=== PATIENT | male | born 1975 | race Caucasian/White ===

== ENCOUNTER 2018-11-18 11:21 | Emergency (ER) | payer BC ==
[2018-11-18 12:24] LABS: Absolute Lymphocytes (CBC) 1.7 K/uL (0.7-4.9); Absolute Monocytes 0.6 K/uL (0.1-1.3); Absolute Neutrophil 5.8 K/uL (1.8-8.0); Basophils % 0.7 % (0-1.3); Eosinophils % 3.2 % (0-4.4); Hematocrit 43.8 % (39.6-49.0); Lymphocytes % 20.1 % (15.3-44.8); MPV 9.1 fL (7.6-11.3); Monocytes % 7.2 % (3.3-12.3); RBC Red Blood Cell Count 4.95 M/uL (4.33-5.43)
[2018-11-18 13:11] LABS: Potassium 4.4 mmol/L (3.5-5.1)
--- NOTE | 2018-11-18 13:54 | RAD REPORT ---
EXAM DESCRIPTION: US - Scrotum Testicles - 11/18/2018 1:28 pm CLINICAL HISTORY: Testicular pain and swelling COMPARISON: None. FINDINGS: Both testicles are well visualized and show homogeneous echogenicity. Doppler evaluation s hows normal blood flow in the testicular tissue. No enlargement or hyperemia of either epididymis. In the wall of the scrotum superior to the left testicle there is a complex heterogeneous, hypoechoic collection measuring 2.7 x 2.0 x 1.8 cm. Abscess or similar infectious/inflammatory collection is fe lt to be most likely. This is the correlate for the area of visible abnormality on physical exam. IMPRESSION: Approximately 2.7 centimeter scrotal wall abscess or similar infectious/ inflammatory pr ocess at the site of palpable abnormality, left-side, superior to the testicle. No testicular or epididymis abnormality.
[2018-11-18] MEDS ORDERED: MORPHINE 4 MG/ML SYR ONE (14:10)
[2018-11-18] MEDS ORDERED: LORazepam 2 MG/ML VIAL ONE (14:10)
[2018-11-18] MEDS ORDERED: LIDOCAINE 1% MPF 30 ML VIAL ONE (14:11)
[2018-11-18] MEDS ORDERED: BUPIVACAINE 0.5% PF 10 ML VIAL ONE (14:11)
[2018-11-18] MEDS ORDERED: ONDANSETRON 4 MG/2 ML VIAL ONE (14:11)
[2018-11-18] MEDS ORDERED: CLINDAMYCIN 900MG/D5W 900 MG/50 ML IVPB IV ONE (15:01)
[2018-11-18] MEDS ORDERED: SMZ./TMP. 800/160 MG TABLET ONE (15:01)
--- NOTE | 2018-11-18 15:04 | EDPHYS ---
Physician Documentation [facility] Name: Albert Leach Age: 43 yrs Sex: Male : 1975 Arrival Date: 11/18/2018 Time: 11:23 Bed 20 Private MD: ED Physician Nam Mcintyre HPI: 11/18 11:55 This 43 yrs old Male presents to ER via Ambulatory with complaints of Abscess.cp 11:55 The patient presents with an abscess of the left side scrotum. cp 11:55 Description: swollen. Onset: The symptoms/episode began/occurred yesterday. Associated cp signs and symptoms: Pertinent negatives: discharge, drainage, fever, shortness of breath. Historical: - Allergies: 11:31 No Known Allergies; aa5 - Home Meds: 11:31 Metformin Oral [Active]; lovastatin 20 mg Oral tab [Active]; aa5 losartan-hydrochlorothiazide oral oral [Active]; - PMHx: 11:31 Hypertension; Hyperlipidemia; Diabetes - NIDDM; aa5 - PSHx: 11:31 abscess; aa5 - Immunization history:: Flu vaccine is not up to date. - Social history:: Smoking status: Patient/guardian denies using tobacco. - Ebola Screening: : No symptoms or risks identified at this time. ROS: 12:05 Constitutional: Negative for body aches, chills, fever, poor PO intake. cp 12:05 Eyes: Negative for injury, pain, redness, and discharge. cp 12:05 ENT: Negative for drainage from ear(s), ear pain, sore throat, difficulty swallowing, difficulty handling secretions. 12:05 Cardiovascular: Negative for chest pain, edema, palpitations. 12:05 Respiratory: Negative for cough, shortness of breath, wheezing. 12:05 Abdomen/GI: Negative for abdominal pain, nausea, vomiting, and diarrhea. 12:05 Skin: Positive for abscess, swelling, of the left side of scrotum. 12:05 Neuro: Negative for altered mental status, headache, weakness. 12:05 All other systems are negative. Exam: 12:10 Head/Face: Normocephalic, atraumatic. cp 12:10 Constitutional: The patient appears in no acute distress, alert, awake, non-toxic, well developed, well nourished, obese. 12:10 Eyes: Periorbital structures: appear normal, Conjunctiva: normal, no exudate, no cp injection, Lids and lashes: appear normal, bilaterally. 12:10 ENT: External ear(s): are unremarkable, Nose: is normal, Mouth: Lips: moist, Oral mucosa: moist, Posterior pharynx: Airway: no evidence of obstruction, patent. 12:10 Chest/axilla: Inspection: normal. 12:10 Cardiovascular: Rate: normal, Rhythm: regular. 12:10 Respiratory: the patient does not display signs of respiratory distress, Respirations: normal, no use of accessory muscles, no retractions, no splinting, no tachypnea. 12:10 Abdomen/GI: Inspection: obese Palpation: abdomen is soft and non-tender, in all quadrants, voluntary guarding, is not appreciated, involuntary guarding, is not appreciated. 12:10 Back: pain, is absent, ROM is normal. 12:10 Skin: abscess, that is moderate sized, of the left side scrotum, with induration. Vital Signs: 11:32 BP 164 / 98; Pulse 88; Resp 20 S; Temp 98.9(TE); Pulse Ox 97% on R/A; Weight 181.44 kg aa5 (R); Height 5 ft. 11 in. (180.34 cm) (R); Pain 1/10; 13:27 BP 140 / 75; Pulse 89; Resp 20; Pulse Ox 97% on R/A; mh5 14:23 BP 129 / 80; Pulse 89; Resp 18; Pulse Ox 98% on R/A; mh5 15:34 BP 143 / 84; Pulse 89; Resp 18; Pulse Ox 99% on R/A; em 11:32 Body Mass Index 55.79 (181.44 kg, 180.34 cm) aa5 Procedures: 14:39 I \T\ D: Incision and drainage was performed for an abscess of the left scrotal wall cp Prepped with Betadine, Anesthetized with 5 ccs of 1% lidocaine w/o epi and 0.5% marcaine w/o epi. Incised with #11 blade. Drained moderate amount purulent fluid. bloody fluid. Cultures obtained. Packed with iodoform gauze, Dressing: sterile 4x4 gauze, the patient tolerated the procedure well. MDM: 11:33 Patient medically screened. cp 12:00 Differential diagnosis: abscess, cellulitis, sepsis, Kalpesh's gangrene. cp 13:37 Physician consultation: Munir Martinez MD was called at 13:35, was contacted at 13:38, regarding consult, patient's condition, wants I\T\D performed in ED and f/u in office. 15:02 Data reviewed: vital signs, nurses notes, lab test result(s), radiologic studies, cp ultrasound, I have discussed the patient's presentation/case with the attending Emergency Department Physician; and as a result, I will discharge patient. 15:02 Counseling: I had a detailed discussion with the patient and/or guardian regarding: the cp historical points, exam findings, and any diagnostic results supporting the discharge/admit diagnosis, lab results, radiology results, the need for outpatient follow up, a urologist, to return to the emergency department if symptoms worsen or persist or if there are any questions or concerns that arise at home. Response to treatment: the patient's symptoms have markedly improved after treatment, and as a result, I will discharge patient. 11/18 11:48 Order name: CBC with Diff; Complete Time: 13:02 cp 11/18 11:48 Order name: BMP; Complete Time: 13:15 cp 11/18 13:15 Interpretation: Normal except: GLUC 191; GFR 78. cp 11/18 11:48 Order name: US Scrotum Testicles; Complete Time: 13:56 cp 11/18 12:37 Order name: Glucose, Ancillary Testing; Complete Time: 13:02 EDMS 11/18 13:58 Order name: Wound Culture cp 11/18 11:48 Order name: IV; Complete Time: 12:11 cp 11/18 11:48 Order name: Accucheck Blood Glucose; Complete Time: 12:11 cp 11/18 13:58 Order name: I\T\D Setup; Complete Time: 14:22 cp Administered Medications: 14:18 Drug: Zofran 4 mg Route: IVP; Site: right forearm; ss 15:06 Follow up: Response: No adverse reaction em 14:20 Drug: morphine 4 mg Route: IVP; Site: right forearm; ss 15:06 Follow up: Response: No adverse reaction; Pain is decreased em 14:22 Drug: Ativan 0.5 mg Route: IVP; Site: right forearm; ss 14:45 Follow up: Response: No adverse reaction; Anxiety decreased em 14:28 Drug: Ativan 0.5 mg Route: IVP; Site: right forearm; ss 14:45 Follow up: Response: No adverse reaction; Anxiety decreased em 14:34 Drug: Marcaine (0.5 %) 5 ml {Note: adminisitered by PA. Nam} Volume: 10 ml; Route: em Infiltration; Site: affected area; 14:40 Follow up: Response: No adverse reaction; Pain is decreased em 14:34 Drug: Lidocaine (1 %) 5 mg {Note: administered by PA. Nam} Route: Infiltration; em Site: affected area; 14:40 Follow up: Response: No adverse reaction; Pain is decreased em 14:53 Drug: Clindamycin 900 mg Route: IVPB; Infused Over: 30 mins; Site: right forearm; em 15:30 Follow up: Response: No adverse reaction; IV Status: Completed infusion; IV Intake: 50mlem 14:53 Drug: Bactrim (160 mg-800 mg (DS) 2 tabs Route: PO; em 15:06 Follow up: Response: No adverse reaction em Point of Care Testing: Blood Glucose: 11:55 Blood Glucose: 170 mg/dL; em Ranges: Critical Glucose Levels:Adult <50 mg/dl or >400 mg/dl <40 mg/dl or >180 mg/dl Disposition: 11/19 08:58 Co-signature as Attending Physician, Nam Mcintyre MD I agree with the assessment and chance plan of care. Disposition: 11/18/18 15:03 Discharged to Home. Impression: Abscess of left scrotal wall. - Condition is Stable. - Discharge Instructions: Skin Abscess. - Prescriptions for Clindamycin HCl 300 mg Oral Capsule - take 1 capsule by ORAL route every 6 hours for 10 days; 40 capsule. Ibuprofen 800 mg Oral Tablet - take 1 tablet by ORAL route every 8 hours As needed take with food; 30 tablet. Tylenol- Codeine #3 300-30 mg Oral Tablet - take 2 tablets by ORAL route every 8 hours As needed; 15 tablet. Bactrim DS 800- 160 mg Oral Tablet - take 1 tablet by ORAL route every 12 hours for 10 days; 20 tablet. - Medication Reconciliation Form, Thank You Letter, Antibiotic Education, Prescription Opioid Use form. - Follow up: Munir Martinez MD; When: 1 - 2 days; Reason: Wound Recheck. - Problem is new. - Symptoms have improved. Signatures: Dispatcher [employer] EDNam Butler MD MD cha Munoz, Edgar, DELIVER DRIVER DELIVER DRIVER em Celina Corral, RN RN aa5 Sandee Castañeda RN RN ss Nam Lindsey, PA PA cp Corrections: (The following items were deleted from the chart) 11/18 15:34 15:03 11/18/2018 15:03 Discharged to Home. Impression: Abscess of left scrotal wall. em Condition is Stable. Forms are Medication Reconciliation Form, Thank You Letter, Antibiotic Education, Prescription Opioid Use. Follow up: Munir Martinez; When: 1 - 2 days; Reason: Wound Recheck. Problem is new. Symptoms have improved. cp
--- NOTE | 2018-11-18 15:04 | ER ---
Nurse's Notes [facility] Name: Albert Leach Age: 43 yrs Sex: Male : 1975 Arrival Date: 11/18/2018 Time: 11:23 Bed 20 Private MD: Diagnosis: Abscess of left scrotal wall Presentation: 11/18 11:30 Presenting complaint: Patient states: abscess to groin area since yesterday. Transition aa5 of care: patient was not received from another setting of care. Onset of symptoms was November 2018. Risk Assessment: Do you want to hurt yourself or someone else? Patient reports no desire to harm self or others. Care prior to arrival: None. 11:30 Method Of Arrival: Ambulatory aa5 11:30 Acuity: LITA 3 aa5 12:15 Initial Sepsis Screen: Does the patient meet any 2 criteria? No. Patient's initial em sepsis screen is negative. Does the patient have a suspected source of infection? Yes: Skin breakdown/wound. Historical: - Allergies: 11:31 No Known Allergies; aa5 - Home Meds: 11:31 Metformin Oral [Active]; lovastatin 20 mg Oral tab [Active]; aa5 losartan-hydrochlorothiazide oral oral [Active]; - PMHx: 11:31 Hypertension; Hyperlipidemia; Diabetes - NIDDM; aa5 - PSHx: 11:31 abscess; aa5 - Immunization history:: Flu vaccine is not up to date. - Social history:: Smoking status: Patient/guardian denies using tobacco. - Ebola Screening: : No symptoms or risks identified at this time. Screenin:45 Abuse screen: Denies threats or abuse. Denies injuries from another. Nutritional jl7 screening: No deficits noted. Tuberculosis screening: No symptoms or risk factors identified. Fall Risk None identified. Assessment: 11:45 General: Appears in no apparent distress. uncomfortable, Behavior is cooperative, jl7 appropriate for age, anxious. Pain: Complains of pain in groin Pain does not radiate. Pain currently is 1 out of 10 on a pain scale. Pain began 2-3 days ago. Is continuous. Neuro: Level of Consciousness is awake, alert, obeys commands, Oriented to person, place, time, situation. Cardiovascular: Patient's skin is warm and dry. Respiratory: Airway is patent Respiratory effort is even, unlabored, Respiratory pattern is regular, symmetrical. Derm: Skin is pink, warm \T\ dry. Abscess located on groin. 13:00 Reassessment: Patient appears in no apparent distress at this time. Patient and/or em family updated on plan of care and expected duration. Pain level reassessed. Patient is alert, oriented x 3, equal unlabored respirations, skin warm/dry/pink. pending US. 15:00 Reassessment: pending completion of IV ABX, will be discharged afterwards. em 15:07 Reassessment: Patient appears in no apparent distress at this time. Patient and/or em family updated on plan of care and expected duration. Pain level reassessed. Patient is alert, oriented x 3, equal unlabored respirations, skin warm/dry/pink. Patient states feeling better. Vital Signs: 11:32 BP 164 / 98; Pulse 88; Resp 20 S; Temp 98.9(TE); Pulse Ox 97% on R/A; Weight 181.44 kg aa5 (R); Height 5 ft. 11 in. (180.34 cm) (R); Pain 1/10; 13:27 BP 140 / 75; Pulse 89; Resp 20; Pulse Ox 97% on R/A; mh5 14:23 BP 129 / 80; Pulse 89; Resp 18; Pulse Ox 98% on R/A; mh5 15:34 BP 143 / 84; Pulse 89; Resp 18; Pulse Ox 99% on R/A; em 11:32 Body Mass Index 55.79 (181.44 kg, 180.34 cm) aa5 ED Course: 11:23 Patient arrived in ED. as 11:30 Triage completed. aa5 11:30 Arm band placed on. aa5 11:33 Nam Lindsey PA is PHCP. cp 11:33 Nam Mcintyre MD is Attending Physician. cp 11:45 Patient has correct armband on for positive identification. Placed in gown. Bed in low jl7 position. Call light in reach. Side rails up X 1. Pulse ox on. NIBP on. Warm blanket given. 11:54 Michael Ball LVN is Primary Nurse. em 12:00 Initial lab(s) drawn, by me, sent to lab. Inserted saline lock: 22 gauge in right em forearm, using aseptic technique. Blood collected. 13:00 Ultrasound completed. Patient tolerated well. Note: assisted moving pt. sg3 13:28 US Scrotum Testicles In Process Unspecified. EDMS 13:[address] Martinez with Nam REYNOSO for patient consulation. eb 14:35 Assist provider with I \T\ D: of an abscess on left side scrotal Set up I\T\D tray. em Performed by Nam REYNOSO Culture sent to lab. Wound packed. iodoform gauze, Dressing with 4X4s, tape Patient tolerated well. 15:02 Munir Martinez MD is Referral Physician. cp 15:33 IV discontinued, intact, bleeding controlled, No redness/swelling at site. Pressure em dressing applied. Administered Medications: 14:18 Drug: Zofran 4 mg Route: IVP; Site: right forearm; ss 15:06 Follow up: Response: No adverse reaction em 14:20 Drug: morphine 4 mg Route: IVP; Site: right forearm; ss 15:06 Follow up: Response: No adverse reaction; Pain is decreased em 14:22 Drug: Ativan 0.5 mg Route: IVP; Site: right forearm; ss 14:45 Follow up: Response: No adverse reaction; Anxiety decreased em 14:28 Drug: Ativan 0.5 mg Route: IVP; Site: right forearm; ss 14:45 Follow up: Response: No adverse reaction; Anxiety decreased em 14:34 Drug: Marcaine (0.5 %) 5 ml {Note: adminisitered by PA. Nam} Volume: 10 ml; Route: em Infiltration; Site: affected area; 14:40 Follow up: Response: No adverse reaction; Pain is decreased em 14:34 Drug: Lidocaine (1 %) 5 mg {Note: administered by PA. Nam} Route: Infiltration; em Site: affected area; 14:40 Follow up: Response: No adverse reaction; Pain is decreased em 14:53 Drug: Clindamycin 900 mg Route: IVPB; Infused Over: 30 mins; Site: right forearm; em 15:30 Follow up: Response: No adverse reaction; IV Status: Completed infusion; IV Intake: 50mlem 14:53 Drug: Bactrim (160 mg-800 mg (DS) 2 tabs Route: PO; em 15:06 Follow up: Response: No adverse reaction em Point of Care Testing: Blood Glucose: 11:55 Blood Glucose: 170 mg/dL; em Ranges: Intake: 15:30 IV: 50ml; Total: 50ml. em Outcome: 15:03 Discharge ordered by MD. cp 15:30 Discharged to home ambulatory, with family. em 15:30 Condition: good 15:30 Discharge instructions given to patient, family, Instructed on discharge instructions, follow up and referral plans. no drinking with medication, no driving heavy equipment, medication usage, Demonstrated understanding of instructions, follow-up care, medications, wound care, Prescriptions given X 4. 15:34 Patient left the ED. em Signatures: Dispatcher [employer] EDMS Michael Ball, DIRECTOR APPOINTMENT DIRECTOR APPOINTMENT em Wendie To Audri, RN RN aa5 Sandee Castañeda RN RN Nam Klein PA PA cp Martinez, Maria [facility] Frank Parker RN RN jl7 Nicolette Valero Elizabeth eb
[2018-11-19] MEDS ORDERED: LORazepam 2 MG/ML VIAL ONE (15:02)
[2018-11-19] MEDS ORDERED: ONDANSETRON 4 MG/2 ML VIAL ONE (15:03)
[2018-11-19] MEDS ORDERED: MORPHINE 4 MG/ML SYR ONE (15:03)
== END 2018-11-18 15:34 | disposition home or self-care (01) ==
LOC: ER 11:21
PROC: 0V95XZZ Drainage of Scrotum, External Approach (ICD-10-PCS; principal; 2018-11-18)
DX: L02.214 Cutaneous abscess of groin (principal); I10 Essential (primary) hypertension; E11.9 Type 2 diabetes mellitus without complications; E78.5 Hyperlipidemia, unspecified
CPT/HCPCS: 36415; 76870; 80048; 82962; 85025; 87070; 87205; 96365; 96375; 99284; J2405

== ENCOUNTER 2018-11-19 09:56 | Inpatient (IN) | payer BC ==
[2018-11-19] MEDS ORDERED: CEFTRIAXONE/SWI 1gm 1 GM/10 ML SYR ONE (11:08)
[2018-11-19 11:47] LABS: Potassium 4.2 mmol/L (3.5-5.1)
--- NOTE | 2018-11-19 11:49 | RAD REPORT ---
EXAM DESCRIPTION: CT - Abdomen Pelvis W Contrast - 11/19/2018 11:33 am CLINICAL HISTORY: Abdominal pain left scrotal abscess4. COMPARISON: none. TECHNIQUE: Computed axial tomography of the abdomen pelvis was obtained. 100 cc Isovue-300 was admin istered intravenously. Oral contrast was not requested which limits evaluation of bowel. All CT scans are performed using dose optimization technique as appropriate and may include automated exposure control or mA/KV adjustment according to patient size. FINDINGS: Fatty liver. Mild hepatomegaly The Spleen, pancreas, adrenal and kidneys appear unremarkable. There is no evidence of diverticulitis. The appendix is normal Small umbilical hernia Ill-defined increased density is present within the anterior left perineum and left scrotum. Small am ount of air is present. Fluid-filled abscess is not seen IMPRESSION: Ill-defined increased density is present within the anterior left perineum and left scro luke. Small amount of air is present. Fluid-filled abscess is not seen. This has the appearance of a c ellulitis. The air probably related to recent instrumentation rather than gas forming infection. Maciel tereza, if the patient's symptoms worsen then a followup CT should be obtained .
[2018-11-19 12:32] LABS: Absolute Lymphocytes (CBC) 0.9 K/uL (0.7-4.9); Absolute Monocytes 0.6 K/uL (0.1-1.3); Absolute Neutrophil 6.6 K/uL (1.8-8.0); Basophils % 0.5 % (0-1.3); Eosinophils % 2.5 % (0-4.4); Hematocrit 42.6 % (39.6-49.0); Lymphocytes % 11.1 % (15.3-44.8); MPV 9.6 fL (7.6-11.3); Monocytes % 7.1 % (3.3-12.3); RBC Red Blood Cell Count 4.79 M/uL (4.33-5.43)
[2018-11-19 13:06] LABS: Urine Blood NEGATIVE (NEG); Urine Glucose 1+ (NEG); Urine Protein NEGATIVE (NEG); Urine pH 5.5 (5.0-7.0)
[2018-11-19] MEDS ORDERED: VANCOMYCIN/NS 1 gm 1 GM/250 ML BAG IV ONE (13:30)
[2018-11-19] MEDS ORDERED: NA CHLORIDE 0.9% 1,000 ML ONE (13:31)
--- NOTE | 2018-11-19 15:10 | ER ---
Nurse's Notes [facility] Name: Albert Leach Age: 43 yrs Sex: Male : 1975 Arrival Date: 11/19/2018 Time: 09:56 Bed 20 Private MD: Diagnosis: Cutaneous abscess of perineum;Cellulitis of perineum Presentation: 11/19 10:05 Presenting complaint: states: had abscess drained yesterday. Is back today because ss area of redness and swelling is worse and patient is experiencing more pain. reports that they spoke with Dr. Martinez this morning and is requesting a "work up and consultation.". Transition of care: patient was not received from another setting of care. Onset of symptoms was November 15, 2018. Risk Assessment: Do you want to hurt yourself or someone else? Patient reports no desire to harm self or others. Initial Sepsis Screen:. Care prior to arrival: None. 10:05 Method Of Arrival: Ambulatory ss 10:05 Acuity: LITA 3 ss 10:35 Initial Sepsis Screen: Does the patient meet any 2 criteria? RR > 20 per min. HR > 90 sg bpm. Yes Does the patient have a suspected source of infection? Yes: Skin breakdown/wound. Historical: - Allergies: 10:08 No Known Allergies; ss - PMHx: 10:08 Diabetes - NIDDM; Hyperlipidemia; Hypertension; ss - PSHx: 10:08 abscess; ss - Immunization history:: Adult Immunizations unknown. - Social history:: Smoking status: Patient/guardian denies using tobacco. - Ebola Screening: : Patient negative for fever greater than or equal to 101.5 degrees Fahrenheit, and additional compatible Ebola Virus Disease symptoms Patient denies exposure to infectious person Patient denies travel to an Ebola-affected area in the 21 days before illness onset. Screenin:10 Abuse screen: Denies threats or abuse. Denies injuries from another. Nutritional sg screening: No deficits noted. Tuberculosis screening: No symptoms or risk factors identified. Never had TB. Fall Risk None identified. Assessment: 11:10 General: Appears in no apparent distress. uncomfortable, well groomed, well developed, sg well nourished, Behavior is calm, cooperative, appropriate for age. Pain: Complains of pain in groin. Cardiovascular: Capillary refill is brisk in bilateral fingers Patient's skin is warm and dry. Respiratory: Airway is patent Respiratory effort is even, unlabored, Respiratory pattern is regular, symmetrical. GI: Abdomen is round non-distended, obese. : Genitalia appear normal. Derm: Skin is pink, warm \\T\\ dry. Abscess located on groin is hot to touch, is red, packing in place from yesterdays visit. 14:58 Reassessment: Patient appears in no apparent distress at this time. Patient and/or ph family updated on plan of care and expected duration. Pain level reassessed. Patient is alert, oriented x 3, equal unlabored respirations, skin warm/dry/pink. Dr Martinez at bedside to assess and repack wound, verbal order received for IV medications, see MAR. 16:33 Reassessment: notified of pt results from repeat lactate, orders received for sg NS 1 liter, input orders for NS Sepsis orders, pt to be given more IV fluids, pt updated attempt to call report and receiving nurse Liz not ready at this time, pt updated and stated understanding. Vital Signs: 10:08 BP 153 / 88; Pulse 106; Resp 19; Temp 97.5(TE); Pulse Ox 97% on R/A; Weight 181.44 kg; ss Height 5 ft. 11 in. (180.34 cm); Pain 2/10; 16:25 BP 167 / 80; Pulse 115; Resp 17; Temp 99.0; Pulse Ox 98% on R/A; sg 16:35 BP 136 / 77; Pulse 115; Resp 19; Pulse Ox 99% on R/A; dh3 10:08 Body Mass Index 55.79 (181.44 kg, 180.34 cm) ED Course: 09:56 Patient arrived in ED. as 10:07 Triage completed. ss 10:08 Arm band placed on right wrist. ss 10:17 Pierre Garcia, CLARY is Primary Nurse. sg 10:20 Mehul Hinds MD is Attending Physician. gs 10:35 No provider procedures requiring assistance completed. sg 11:00 Patient has correct armband on for positive identification. Bed in low position. Call sg light in reach. kindergarten teacher assistant on. Pulse ox on. NIBP on. Warm blanket given. Head of bed elevated. 11:15 Missed attempt(s): 20 gauge in left antecubital area. Bleeding controlled, band aid dh3 applied, catheter tip intact. 11:17 Initial lab(s) drawn, by me, sent to lab. First set of blood cultures drawn by me. dh3 Inserted saline lock: 22 gauge in left forearm, using aseptic technique. Blood collected. 11:31 CT completed. Patient tolerated procedure well. Patient moved to CT via stretcher. jg6 Patient moved back from CT. 11:33 CT Abd/Pelvis - W/Contrast In Process Unspecified. EDMS 15:09 Tanvi Haddad MD is Hospitalizing Provider. gs 17:00 IV discontinued, intact, No redness/swelling at site. sg Administered Medications: 12:40 Drug: Rocephin - (cefTRIAXone) 1 grams Route: IVPB; Infused Over: 30 mins; Site: left sg forearm; 13:00 Follow up: Response: No adverse reaction; IV Status: Completed infusion sg 13:20 Drug: vancoMYCIN 1 grams Route: IVPB; Infused Over: 2 hrs; Site: left forearm; sg 15:30 Follow up: Response: No adverse reaction; IV Status: Completed infusion sg 13:40 Drug: NS 0.9% 1000 ml Route: IV; Rate: 1 bolus; Site: left forearm; sg 15:00 Follow up: Response: No adverse reaction; IV Status: Completed infusion; IV Intake: sg 990ml 15:50 Follow up: Response: No adverse reaction; IV Intake: 1000ml sg 14:53 Drug: Zofran 4 mg Route: IVP; Site: left forearm; ph 14:55 Drug: morphine 4 mg Route: IVP; Site: left forearm; ph 14:56 Drug: Ativan 1 mg Route: IVP; Site: left forearm; ph 16:42 Drug: NS 0.9% 2000 ml Route: IV; Rate: 1 bolus; Site: left forearm; sg 17:15 Follow up: Response: No adverse reaction; IV Status: Infusion continued upon admission sg Intake: 15:00 IV: 990ml; Total: 990ml. sg 15:50 IV: 1000ml; Total: 1990ml. sg Outcome: 15:10 Decision to Hospitalize by Provider. gs 17:14 Admitted to Med/surg accompanied by tech, family with patient, room 427, with chart, sg Report called to Liz MEANS 17:14 Condition: stable 17:14 Instructed on the need for admit, safety practices, Demonstrated understanding of instructions, follow-up care. 17:33 Patient left the ED. sg Signatures: Dispatcher [employer] EDPierre Mead RN RN sg Martinez, Amelia as Smirch, Shelby, RN RN Erika Meyer RN RN Roldan, Ashleigh [facility] Mehul Hinds MD MD gs Garcia, Jessica j6 Corrections: (The following items were deleted from the chart) 16:35 16:25 BP 136 / 80; Pulse 87bpm; Resp 17bpm; Pulse Ox 98% RA; Temp 99.0F; sg sg
--- NOTE | 2018-11-19 15:10 | EDPHYS ---
Physician Documentation [facility] Name: Albert Leach Age: 43 yrs Sex: Male : 1975 Arrival Date: 11/19/2018 Time: 09:56 Bed 20 Private MD: ED Physician Mehul Hinds HPI: 11/19 15:06 This 43 yrs old Male presents to ER via Ambulatory with complaints of Abscess gs Recheck. 15:06 Patient presents to ED for recheck of: abscess. The affected area is on the groin. gs Previous treatment: The patient was initially treated yesterday, the care was rendered at [facility]. Progress: The patient reports increased redness. The patient has experienced a previous episode. Historical: - Allergies: 10:08 No Known Allergies; ss - PMHx: 10:08 Diabetes - NIDDM; Hyperlipidemia; Hypertension; ss - PSHx: 10:08 abscess; ss - Immunization history:: Adult Immunizations unknown. - Social history:: Smoking status: Patient/guardian denies using tobacco. - Ebola Screening: : Patient negative for fever greater than or equal to 101.5 degrees Fahrenheit, and additional compatible Ebola Virus Disease symptoms Patient denies exposure to infectious person Patient denies travel to an Ebola-affected area in the 21 days before illness onset. ROS: 15:06 All other systems are negative. gs Exam: 15:06 Head/Face: Normocephalic, atraumatic. Eyes: Pupils equal round and reactive to light, gs extra-ocular motions intact. Lids and lashes normal. Conjunctiva and sclera are non-icteric and not injected. Cornea within normal limits. Periorbital areas with no swelling, redness, or edema. ENT: Nares patent. No nasal discharge, no septal abnormalities noted. Tympanic membranes are normal and external auditory canals are clear. Oropharynx with no redness, swelling, or masses, exudates, or evidence of obstruction, uvula midline. Mucous membranes moist. Neck: Trachea midline, no thyromegaly or masses palpated, and no cervical lymphadenopathy. Supple, full range of motion without nuchal rigidity, or vertebral point tenderness. No Meningismus. Chest/axilla: Normal chest wall appearance and motion. Nontender with no deformity. No lesions are appreciated. Cardiovascular: Regular rate and rhythm with a normal S1 and S2. No gallops, murmurs, or rubs. Normal PMI, no JVD. No pulse deficits. Respiratory: Lungs have equal breath sounds bilaterally, clear to auscultation and percussion. No rales, rhonchi or wheezes noted. No increased work of breathing, no retractions or nasal flaring. Abdomen/GI: Soft, non-tender, with normal bowel sounds. No distension or tympany. No guarding or rebound. No evidence of tenderness throughout. Back: No spinal tenderness. No costovertebral tenderness. Full range of motion. Skin: Warm, dry with normal turgor. Normal color with no rashes, no lesions, and no evidence of cellulitis. MS/ Extremity: Pulses equal, no cyanosis. Neurovascular intact. Full, normal range of motion. Neuro: Awake and alert, GCS 15, oriented to person, place, time, and situation. Cranial nerves II-XII grossly intact. Motor strength 5/5 in all extremities. Sensory grossly intact. Cerebellar exam normal. Normal gait. 15:06 Constitutional: The patient appears alert, awake. 15:06 : Male external genitalia: induration left hemiscrotum cellulitis scrotum to pubis on left no perineal crepitus or cellulitis. Vital Signs: 10:08 BP 153 / 88; Pulse 106; Resp 19; Temp 97.5(TE); Pulse Ox 97% on R/A; Weight 181.44 kg; ss Height 5 ft. 11 in. (180.34 cm); Pain 2/10; 16:25 BP 167 / 80; Pulse 115; Resp 17; Temp 99.0; Pulse Ox 98% on R/A; sg 16:35 BP 136 / 77; Pulse 115; Resp 19; Pulse Ox 99% on R/A; dh3 10:08 Body Mass Index 55.79 (181.44 kg, 180.34 cm) ss MDM: 10:43 Patient medically screened. 15:06 Differential diagnosis: cellulitis, abscess,fourniers, sepsis. Data reviewed: vital gs signs, nurses notes, lab test result(s), radiologic studies. Response to treatment: the patient's symptoms have mildly improved after treatment, and as a result, I will admit patient. Physician consultation: Munir Martinez MD and will see patient in ED, would like admission per Dr. Tanvi Haddad MD. 15:10 ED course: lactate most likely from metformin. 11/19 10:51 Order name: Basic Metabolic Panel; Complete Time: 12:01 11/19 10:51 Order name: Blood Culture Adult (2) 11/19 10:51 Order name: CBC with Diff; Complete Time: 13:09 11/19 10:51 Order name: Lactate; Complete Time: 12:01 11/19 10:51 Order name: Procalcitonin; Complete Time: 13:09 11/19 12:44 Order name: Urine Dipstick--Ancillary (enter results); Complete Time: 13:09 dh3 11/19 10:51 Order name: CT Abd/Pelvis - W/Contrast; Complete Time: 12:01 11/19 16:22 Order name: Lactate Sepsis 2 HR Follow-up; Complete Time: 16:30 EDMS 11/19 10:51 Order name: Cardiac monitoring; Complete Time: 11:00 11/19 10:51 Order name: IV Saline Lock - Large Bore; Complete Time: 11:01 11/19 10:51 Order name: Labs collected and sent; Complete Time: 11:01 Administered Medications: 12:40 Drug: Rocephin - (cefTRIAXone) 1 grams Route: IVPB; Infused Over: 30 mins; Site: left sg forearm; 13:00 Follow up: Response: No adverse reaction; IV Status: Completed infusion sg 13:20 Drug: vancoMYCIN 1 grams Route: IVPB; Infused Over: 2 hrs; Site: left forearm; sg 15:30 Follow up: Response: No adverse reaction; IV Status: Completed infusion sg 13:40 Drug: NS 0.9% 1000 ml Route: IV; Rate: 1 bolus; Site: left forearm; sg 15:00 Follow up: Response: No adverse reaction; IV Status: Completed infusion; IV Intake: sg 990ml 15:50 Follow up: Response: No adverse reaction; IV Intake: 1000ml sg 14:53 Drug: Zofran 4 mg Route: IVP; Site: left forearm; ph 14:55 Drug: morphine 4 mg Route: IVP; Site: left forearm; ph 14:56 Drug: Ativan 1 mg Route: IVP; Site: left forearm; ph 16:42 Drug: NS 0.9% 2000 ml Route: IV; Rate: 1 bolus; Site: left forearm; 17:15 Follow up: Response: No adverse reaction; IV Status: Infusion continued upon admission sg Disposition: 11/19/18 15:10 Hospitalization ordered by Tanvi Haddad for Observation. Preliminary diagnosis are Cutaneous abscess of perineum, Cellulitis of perineum. - Bed requested for Telemetry/MedSurg (observation). - Status is Observation. sg - Condition is Stable. - Problem is new. - Symptoms have improved. UTI on Admission? No Signatures: Dispatcher [employer] EDMS Linda Ryan RN RN dw Pierre Garcia RN RN sg Franny Mary RN CLARY Sandee Castañeda RN RN Erika Meyer RN RN HindsMehul yao MD MD gs Corrections: (The following items were deleted from the chart) 16:17 15:10 Hospitalization Ordered by Tanvi Haddad MD for Observation. Preliminary diagnosis dw is Cutaneous abscess of perineum; Cellulitis of perineum. Bed requested for Telemetry/MedSurg (observation). Status is Observation. Condition is Stable. Problem is new. Symptoms have improved. UTI on Admission? No. gs 17:33 16:17 11/19/2018 15:10 Hospitalization Ordered by Tanvi Haddad MD for Observation. sg Preliminary diagnosis is Cutaneous abscess of perineum; Cellulitis of perineum. Bed requested for Telemetry/MedSurg (observation). Status is Observation. Condition is Stable. Problem is new. Symptoms have improved. UTI on Admission? No. dw
--- NOTE | 2018-11-19 15:17 | P.HP ---
Certification for Inpatient Patient admitted to: Observation With expected LOS: <2 Midnights Practitioner: I am a practitioner with admitting privileges, knowledge of patient current condition, hospital course, and medical plan of care. Services: Services provided to patient in accordance with Admission requirements found in Title 42 Section 412.3 of the Code of Federal Regulations Patient History Date of Service: 11/19/18 Reason for admission: Scrotal cellulitis History of Present Illness: This is a 43-year-old male with history of diabetes, hypertension hyperlipidemia admitted for scrotal cellulitis. Patient stated that on Monday when he was taking a shower, scrotal area felt hard. This progressively worsened and patient came to the ER on for worsening pain. That day in the ER, and I and D was done and he was discharged with outpatient follow up with Dr. Martinez, urology. Per patient, he came back today because he was having worsening pain and redness. He was seen by Dr. Martinez in the ER and was told to admit for worsening cellulitis. Patient states that he had a temperature of 100.3 yesterday along with intermittent chills. He otherwise denies any chest pain, shortness of breath, headache, vision changes, GI complaints. In the ER, his blood pressure was 153/88, heart rate of 106, respirations of 19 , he was afebrile and satting 97% on room air. His BMI is remarkable for 55.79. His lab work was significant for lactic acid elevated at 2.3. He does not have any white count, his pro calcitonin is normal and his other labs are normal. He had a scrotal ultrasound done on the , with 2.7 cm scrotal wall abscess without any epididymitis. He had normal blood flow in the scrotal area. His CT scan in the ER today with evidence of cellulitis. He received IV Rocephin and vancomycin along with 2 L bolus of IV fluids. Blood cultures were drawn prior to antibiotics. At the time of my exam, patient was alert oriented x3, in mild distress secondary to pain and hemodynamically stable. Allergies No Known Allergies Allergy (Unverified 11/19/18 13:23) Home medications list reviewed: Yes - Past Medical/Surgical History Diabetic: Yes -: Hypertension -: Hyperlipidemia -: Non-insulin dependent diabetes mellitus type 2 Review of Systems 10-point ROS is otherwise unremarkable Physical Examination - Physical Exam General: Alert, Oriented x3, Mild distress (Secondary to pain) HEENT: Atraumatic, PERRLA, Mucous membr. moist/pink, EOMI, Sclerae nonicteric Neck: Supple, 2+ carotid pulse no bruit, No LAD, Without JVD or thyroid abnormality Respiratory: Clear to auscultation bilaterally, Normal air movement Cardiovascular: Regular rate/rhythm, Normal S1 S2 Gastrointestinal: Normal bowel sounds, No tenderness Musculoskeletal: No tenderness Integumentary: No rashes Neurological: Normal gait, Normal speech, Normal strength at 5/5 x4 extr, Normal tone, Normal affect Lymphatics: No axilla or inguinal lymphadenopathy - Studies Laboratory Data (last 24 hrs) 11/19/18 11:17: WBC 8.3, Hgb 13.7, Hct 42.6, Plt Count 233 11/19/18 11:17: Sodium 140, Potassium 4.2, BUN 14, Creatinine 1.08, Glucose 255 H Male Exam - Male Exam Scrotum: Edema, Tenderness, Other (Erythema around scrotal sac. A deeper abscess type lesion in the left inguinal area with packing in place) Assessment and Plan - Problems (Diagnosis) (1) Cellulitis of scrotum Current Visit: Yes Status: Acute (2) Diabetes mellitus Current Visit: Yes Status: Chronic Qualifiers: Diabetes mellitus type: type 2 Diabetes mellitus mcc insulin use: without mcc use Diabetes mellitus complication status: with hyperglycemia Qualified Code(s): E11.65 - Type 2 diabetes mellitus with hyperglycemia (3) Hypertension Current Visit: No Status: Chronic Qualifiers: Hypertension type: essential hypertension Qualified Code(s): I10 - Essential (primary) hypertension (4) Hyperlipidemia Current Visit: No Status: Chronic Qualifiers: Hyperlipidemia type: unspecified Qualified Code(s): E78.5 - Hyperlipidemia , unspecified (5) Morbid obesity with BMI of 50.0-59.9, adult Current Visit: Yes Status: Chronic - Plan This is a 43-year-old male with: Scrotal cellulitis, He is status post I and D in the ER yesterday. Admit to floor with tele IV antibiotics with vancomycin and Rocephin Pain control with IV pain medication Demarcated area of cellulitis, to monitor Dr. Martinez, urology consulted. Zna-fwcbqsr-zojxmkcsr diabetes mellitus, type 2, with hyperglycemia Strict blood sugar control Accu-Cheks. Will start with mild sliding scale insulin. Will adjust as needed. Hypertension Restart home medication of losartan/hydrochlorothiazide Continue to monitor and adjust medications as needed Hyperlipidemia Stable. We will restart home statin Morbid obesity DVT prophylaxis: Lovenox GI prophylaxis: None Diet: 1800 diabetic Disposition: Admit to floor with tele. Continue IV antibiotics. Pending symptomatic improvement Discharge Plan: Home Plan to discharge in: 48 Hours - Advance Directives Does patient have a Living Will: No Does patient have a Durable POA for Healthcare: No Time Spent Managing Pts Care (In Minutes): 55
[2018-11-19] MEDS ORDERED: NA CHLORIDE 0.9% 2,000 ML ONE (16:49)
[2018-11-19] MEDS ORDERED: ONDANSETRON 4 MG/2 ML VIAL IV PRN (18:15)
[2018-11-19] MEDS: INSULIN -REGULAR HUMAN 50 UNIT/0.5 ML ML SQ SCH ×2 (18:15→21:52)
[2018-11-19] MEDS ORDERED: ACETAMINOPHEN 500 MG TAB PO PRN (18:53)
[2018-11-19] MEDS: NA CHLORIDE 0.9% 1,000 ML IV SCH ×2 (19:00→23:16)
[2018-11-19] MEDS ORDERED: VANCOMYCIN 1.25 GM in NA CHLORIDE 0.9% 250 ML IVPB SCH (19:00)
[2018-11-19] MEDS ORDERED: FUROSEMIDE 20 MG/ 2ML VIAL IV ONE (19:20)
--- NOTE | 2018-11-19 19:44 | RAD REPORT ---
EXAM DESCRIPTION: Yen Single View11/19/2018 7:38 pm CLINICAL HISTORY: Chest pain COMPARISON: none FINDINGS: The lungs appear clear of acute infiltrate. The heart is mildly enlarged IMPRESSION: No acute abnormalities displayed
[2018-11-19] MEDS: CEFTRIAXONE/SWI 1gm 1 GM/10 ML SYR IV SCH (20:29)
[2018-11-19] MEDS ORDERED: CEFTRIAXONE 1 GM/NS 50 ML 1 GM/50 ML BAG IV SCH (21:00)
--- NOTE | 2018-11-19 21:27 | CON ---
History Of Present Illness: He is a 43-year-old white male diabetic patient, who presented to the ER yesterday with a scrotal abscess on the left side of the scrotum deep underneath, that was drained and packed and sent home on antibiotics. He comes in today stating he has worsening pain. The redness is spreading, so we are going to admit him for IV antibiotics. I examined the patient. There is no more fluctuance. No more pus seen. I changed the dressing, removed the old iodoform gauze and placed a new iodoform gauze. We will admit him for a couple days of IV antibiotics and see how he does, while we are awaiting the cultures to come back from yesterday's culture. Past Medical History: Hypertension, hyperlipidemia, insulin-dependent diabetes mellitus. He had an abscess there before 20 years ago, was drained by Dr. Diehl , in the area of the leg that was MRSA Allergies: NO KNOWN DRUG ALLERGIES. Medications: Metformin, lovastatin, losartan, hydrochlorothiazide. Immunizations: Up to date, flu vaccine up to date. Physical Examination: Vital Signs: Temperature 98.9, pulse rate 89, respirations 18, BP 143/84, saturation 99%. He has some new vitals about to be taken. HEENT: Atraumatic, normocephalic. Chest: Clear. Abdomen: Soft. : Benign scrotum, red erythema up to the pubic area. Lower suprapubic area was marked with a pen. Left hemiscrotum was reddened and slightly matted in 1 area. There was an incision in the left lower posterior area of the scrotum with packing of iodoform gauze. Legs are normal. Laboratory: Reviewed white count 8.3, H and H 13 and 43, platelet count 233. Chemistry: Sodium 140, potassium 4.2, chloride 104, bicarb 25, BUN 14, creatinine 1.1, GFR 74, glucose 255. Lactic acid 2.3, elevated. UA shows pH 5.5 specific gravity 1.020. Blood negative. Nitrite negative. Assessment: Left hemiscrotal abscess with worsened cellulitis status post I and D yesterday by the ER. Plan: Plan is to admit overnight for IV antibiotics. He got a dose of vancomycin in the ER. We will continue that throughout. Continue wet-to-dry dressing changes. I just changed 1 now, we can change next one in the morning, on the rounds. MOISÉS/GRABIEL Voice ID: [id number] Report ID: [id number] MTDD
[2018-11-19] MEDS: VANCOMYCIN 2 GM in NA CHLORIDE 0.9% 500 ML IVPB SCH (23:15)
[2018-11-19] MEDS: MORPHINE 4 MG/ML SYR IV PRN (23:15)
[2018-11-20 04:43] LABS: ALT/SGPT 31 U/L (12-78); AST/SGOT 17 U/L (15-37); Absolute Lymphocytes (CBC) 1.3 K/uL (0.7-4.9); Absolute Neutrophil 5.2 K/uL (1.8-8.0); Albumin 2.8 g/dL (3.4-5.0); Alkaline Phosphatase 72 U/L (45-117); BUN Blood Urea Nitrogen 11 mg/dL (7-18); Basophils % 0.5 % (0-1.3); Bicarbonate 26 mmol/L (21-32); Bilirubin Total 0.6 mg/dL (0.2-1.0); Eosinophils % 2.3 % (0-4.4); Glucose Level 177 mg/dL (74-106); Hematocrit 38.1 % (39.6-49.0); Lymphocytes % 16.9 % (15.3-44.8); MPV 9.2 fL (7.6-11.3); Monocytes % 12.5 % (3.3-12.3); Potassium 3.8 mmol/L (3.5-5.1); Protein, Total 6.3 g/dL (6.4-8.2); RBC Red Blood Cell Count 4.39 M/uL (4.33-5.43); Sodium Level 138 mmol/L (136-145)
[2018-11-20] MEDS: NA CHLORIDE 0.9% 1,000 ML IV SCH ×2 (05:00→13:18)
[2018-11-20 05:52] LABS: Magnesium 2.1 mg/dL (1.8-2.4); Phosphorus 2.3 mg/dL (2.5-4.9)
[2018-11-20] MEDS ORDERED: KCL 20 MEQ/100 mL IVPB 20 MEQ/100 ML BAG IV SCH (06:00)
[2018-11-20] MEDS: INSULIN -REGULAR HUMAN 50 UNIT/0.5 ML ML SQ SCH ×4 (07:30→22:35)
[2018-11-20] MEDS: ENOXAPARIN 40 MG/0.4 ML SQ SCH (08:49)
[2018-11-20] MEDS: VANCOMYCIN 2 GM in NA CHLORIDE 0.9% 500 ML IVPB SCH ×2 (08:50→22:34)
[2018-11-20] MEDS: CEFTRIAXONE/SWI 1gm 1 GM/10 ML SYR IV SCH ×2 (08:50→22:34)
[2018-11-20] MEDS ORDERED: POTASS/SODIUM PHOSPHATE 1 PKT POWD.PACK PO ONE (09:00)
[2018-11-20] MEDS: MORPHINE 4 MG/ML SYR IV PRN ×2 (09:42→15:59)
[2018-11-20] MEDS ORDERED: LIDOCAINE 2% MPF 5 ML VIAL ONE (13:38)
[2018-11-20] MEDS ORDERED: PROPOFOL 200 MG/20 ML VIAL IV ONE ×2 (13:38→13:54)
[2018-11-20] MEDS ORDERED: FENTANYL CITR 100 MCG/2 ML ONE (13:38)
[2018-11-20] MEDS ORDERED: MIDAZOLAM HCL 2 MG/2 ML INJ ONE (13:38)
[2018-11-20] MEDS ORDERED: BUPIVACAINE 0.25% PF 10 ML VIAL ONE (13:40)
[2018-11-20] MEDS ORDERED: LIDOCAINE 1% MPF 30 ML VIAL ONE (13:40)
[2018-11-20] MEDS ORDERED: ROCURONIUM 50 MG/5 ML VIAL IV ONE (13:54)
[2018-11-20] MEDS ORDERED: SUCCINYLCHOLINE 20 MG/ML (10 ML) IV ONE (13:57)
[2018-11-20] MEDS ORDERED: NS 0.9% VIAL 10 ML ONE (14:37)
[2018-11-20] MEDS ORDERED: BACITRACIN 50000 UNIT VIAL ONE (14:37)
[2018-11-20] MEDS ORDERED: NA CHLORIDE 0.9% 1,000 ML ONE (15:12)
[2018-11-20] MEDS: LOSARTAN/HCTZ 50-12.5 PO SCH (16:04)
[2018-11-20] MEDS ORDERED: GLUCAGON 1 MG/VIAL IM PRN (16:11)
[2018-11-20] MEDS ORDERED: D50W 25 GM/50 ML SYRINGE IV PRN (16:11)
--- NOTE | 2018-11-20 17:46 | PN ---
Date of Progress Note: 11/20/2018 Subjective: The patient is seen and examined, chart reviewed, and case discussed with RN. The patie nt states that his scrotal swelling has improved, however, still has significant amount of pain. Medications: List reviewed. Objective: Vital Signs: Temperature 97.2, heart rate 85, blood pressure 129/61, respirations 22, O2 97% on room air. General: Awake, alert, oriented x3. Ill-appearing, morbidly obese male. BMI 55. CV: S1, S2. Regular rate and rhythm. Pulses present. Respiratory: Moving air well bilaterally. No wheezing. Gastrointestinal: Abdomen is soft, nontender, nondistended. Positive bowel sounds. Extremities: No clubbing, cyanosis, or edema. Neurologic: Nonfocal. Skin: Scrotal erythema and edema, apparently improved from previous. Packing in place. Laboratory Data: Sodium 138, potassium 3.8 chloride 104, CO2 26, BUN 11, creatinine 0.86, glucose 17 7, calcium 7.9, phosphorus 2.3, magnesium 2.1. WBC 7.7, H and H 12.9 and 38.1, platelets 204, neutro phils 67%. Blood cultures pending. Assessment: A 43-year-old male with: 1.Cellulitis of the scrotum, status post incision and drainage in the ER, improving with IV antibiot ics. We will continue vancomycin, Rocephin. Dr. Martinez with urology has been consulted. The patient was n.p.o. for possible procedure today. 2.Diabetes mellitus type 2, non-insulin dependent with hyperglycemia. We will continue sliding scal e insulin and Accu-Cheks. 3.Essential hypertension. We will continue home medications. 4.Mixed hyperlipidemia. Continue statin. 5.Morbid obesity. Body mass index 55.8. 6.Deep vein thrombosis prophylaxis with Lovenox. Plan: Follow up with Dr. Martinez's recommendations. Follow up on cultures, so far negative. DC in th e next 24 hours depending on clinical response. SA/MODL Voice ID: [id number] Report ID: [id number]
[2018-11-20] MEDS: HYDROCODONE/APAP 10/325 TAB PO PRN (18:49)
[2018-11-20] MEDS: ATORVASTATIN 10 MG TAB PO SCH (22:34)
[2018-11-21] MEDS: NA CHLORIDE 0.9% 1,000 ML IV SCH ×2 (03:36→10:06)
[2018-11-21] MEDS: HYDROCODONE/APAP 10/325 TAB PO PRN ×4 (03:50→22:25)
[2018-11-21 04:22] LABS: Absolute Lymphocytes (CBC) 1.5 K/uL (0.7-4.9); Absolute Monocytes 0.7 K/uL (0.1-1.3); Absolute Neutrophil 4.4 K/uL (1.8-8.0); Basophils % 0.4 % (0-1.3); Eosinophils % 4.8 % (0-4.4); Hematocrit 39.2 % (39.6-49.0); MPV 9.3 fL (7.6-11.3); Monocytes % 10.5 % (3.3-12.3); RBC Red Blood Cell Count 4.45 M/uL (4.33-5.43)
[2018-11-21 04:29] LABS: ALT/SGPT 30 U/L (12-78); AST/SGOT 19 U/L (15-37); Albumin 2.7 g/dL (3.4-5.0); Alkaline Phosphatase 67 U/L (45-117); BUN Blood Urea Nitrogen 11 mg/dL (7-18); Bicarbonate 27 mmol/L (21-32); Bilirubin Total 0.4 mg/dL (0.2-1.0); Glucose Level 164 mg/dL (74-106); Phosphorus 2.5 mg/dL (2.5-4.9); Potassium 4.1 mmol/L (3.5-5.1); Protein, Total 6.3 g/dL (6.4-8.2); Sodium Level 140 mmol/L (136-145)
[2018-11-21] MEDS: PANTOPRAZOLE 40MG TABLET PO SCH (06:51)
[2018-11-21] MEDS: INSULIN -REGULAR HUMAN 50 UNIT/0.5 ML ML SQ SCH ×4 (07:30→21:00)
[2018-11-21] MEDS: LOSARTAN/HCTZ 50-12.5 PO SCH (10:05)
[2018-11-21] MEDS: CEFTRIAXONE/SWI 1gm 1 GM/10 ML SYR IV SCH (10:05)
[2018-11-21] MEDS: VANCOMYCIN 2 GM in NA CHLORIDE 0.9% 500 ML IVPB SCH ×2 (10:05→20:36)
[2018-11-21] MEDS: ENOXAPARIN 40 MG/0.4 ML SQ SCH (10:07)
[2018-11-21] MEDS: Meropenem 500 MG in NA CHLORIDE 0.9% 100 ML IV SCH (16:04)
[2018-11-21] MEDS ORDERED: Meropenem 500 MG VIAL IV SCH (17:00)
[2018-11-21] MEDS ORDERED: ZOLPIDEM TARTRATE 5 MG TABLET PO PRN (17:59)
--- NOTE | 2018-11-21 20:30 | PN ---
Subjective: The patient is feeling well. Complained of the cellulitis spreading little bit toward t he left upper thigh after incision and drainage yesterday. Reviewed the cultures with the lab, it co uld be a possible gram-negative anaerobic and possible bacteroides that never grew from the emergency room, never gotten anaerobic set up. This is only thing that is missing, so we are going to do anae robic coverage. I have consulted Infectious Disease to see the patient and start anaerobic coverage. The wound looks good. No pus drainage. [place] are in good shape. No fluctuance in the wound. O therwise, he is doing well. His white count has been stable at 7.0, H and H 12.6 and 39, and platele t count 210. Assessment: Scrotal abscess, status post incision and drainage. Continue antibiotics. We will cont inue with Rocephin, vancomycin and possible add anaerobic coverage. Thank you very much end dictation. MOISÉS/GRABIEL Voice ID: [id number] Report ID: [id number]
[2018-11-21] MEDS: MORPHINE 4 MG/ML SYR IV PRN (20:35)
[2018-11-21] MEDS: ATORVASTATIN 10 MG TAB PO SCH (20:36)
--- NOTE | 2018-11-21 20:39 | CON ---
History Of Present Illness: This is a 43-year-old male. I was consulted for a scrotal abscess. The patient was seen by Urology team who has I and D'd the scrotal abscess and has a [place] drain in th e area. The patient concern about redness going down his legs. He has significant history of diabet es mellitus, hypertension, and hyperlipidemia, came in with scrotal cellulitis noted few days prior t o admission. The patient went to the emergency room initially and was seen there. Came in this time with a fever of 100.3 F. Past Medical History: Hypertension, hyperlipidemia, diabetes mellitus. Social History: Nonsmoker, nondrinker. Family History: Noncontributory. Medications: Currently on Rocephin and vancomycin. Allergies: NO KNOWN DRUG ALLERGIES. Review of Systems: A 10-point review was performed. Physical Examination: General: This is a 43-year-old male, lying in bed, not in any acute cardiopulmonary distress. Vital Signs: Temperature 97, pulse 88, respiration 18, blood pressure 123/55. Examination of the abdominal and perineal area shows erythematous changes. Surgical wound noted to t he left side of the scrotal region. No excessive drainage noted. [place] drainage in place. Laboratory Data: Shows WBC 7000, hemoglobin 12.6, platelets are 210. Chemistry shows sodium 140, po tassium 4.1, chloride 106, bicarb 27, BUN 11, creatinine 0.79, glucose 164. Micro data cultures are pending. Assessment And Plan: Left scrotal abscess, which has been drained. The patient has cellulitis in th e perineal region. We will recommend to start the patient on vancomycin and meropenem. Discontinue Rocephin. Continue wound care as recommended by surgical team. We will follow the patient closely. Thank you Dr. Mi for consult. CASTILLO/GRABIEL Voice ID: [id number] Report ID: [id number]
--- NOTE | 2018-11-21 22:00 | PN ---
Date of Progress Note: 11/21/2018 History: The patient is seen and examined, chart reviewed and case discussed with RN and Dr. Martinez, as well as Dr. Pang. Medications: List reviewed. Physical Examination: Vital Signs: Temperature 97.4, heart rate 88, blood pressure 123/55, respirations 20, O2 96% on room air. General: Awake, alert, oriented x3. Ill-appearing male, morbidly obese. CV: S1, S2. Regular rate and rhythm. Peripheral pulses present. Respiratory: Moving air well bilaterally. No wheezing. Gastrointestinal: Abdomen is soft, nontender, nondistended. Positive bowel sounds. Extremities: No clubbing, cyanosis, or edema. Neurologic: Nonfocal. Skin: Scrotal erythema, now starting to the thigh, some warmth to touch. Laboratory Data: Sodium 140, potassium 4.1, chloride 106, CO2 27, BUN 11, creatinine 0.79, glucose 1 64, calcium 8, phosphorus 2.5. WBC 7, H and H 12.6 and 39.2, platelets 210. Blood cultures, no grow th to date. Wound cultures preliminarily showing no growth. Assessment: A 43-year-old male with: 1.Cellulitis of the scrotum status post incision and drainage. Appreciate Dr. Martinez's input. We wi ll continue IV antibiotics. Dr. Pang has adjusted antibiotics for anaerobic coverage. We will con tinue to monitor. Erythema is spreading to the lower extremity. 2.Diabetes mellitus type 2, non-insulin requiring with hyperglycemia. We will continue sliding scal e insulin. Monitor blood glucose levels. 3.Essential hypertension, stable on home medications. 4.Mixed hyperlipidemia. Continue statin. 5.Morbid obesity, BMI of 55.8. 6.Deep venous thrombosis prophylaxis with Lovenox. Plan: Continue IV antibiotics. Follow up on cultures. Likely discharge in the next 24 to 48 hours depending on the clinical response. SA/MODL Voice ID: [id number] Report ID: [id number]
[2018-11-22] MEDS: Meropenem 500 MG in NA CHLORIDE 0.9% 100 ML IV SCH ×3 (01:49→17:01)
[2018-11-22] MEDS: MORPHINE 4 MG/ML SYR IV PRN ×3 (04:20→20:41)
[2018-11-22 05:30] LABS: Absolute Lymphocytes (CBC) 1.5 K/uL (0.7-4.9); Absolute Monocytes 0.7 K/uL (0.1-1.3); Absolute Neutrophil 4.7 K/uL (1.8-8.0); Basophils % 0.8 % (0-1.3); Eosinophils % 6.1 % (0-4.4); Hematocrit 38.8 % (39.6-49.0); MPV 8.6 fL (7.6-11.3); Monocytes % 9.5 % (3.3-12.3); RBC Red Blood Cell Count 4.38 M/uL (4.33-5.43)
[2018-11-22 05:53] LABS: ALT/SGPT 31 U/L (12-78); AST/SGOT 24 U/L (15-37); Albumin 2.8 g/dL (3.4-5.0); Alkaline Phosphatase 71 U/L (45-117); BUN Blood Urea Nitrogen 9 mg/dL (7-18); Bicarbonate 27 mmol/L (21-32); Bilirubin Total 0.5 mg/dL (0.2-1.0); Glucose Level 186 mg/dL (74-106); Protein, Total 6.4 g/dL (6.4-8.2); Sodium Level 138 mmol/L (136-145)
[2018-11-22] MEDS: PANTOPRAZOLE 40MG TABLET PO SCH (06:29)
[2018-11-22] MEDS: HYDROCODONE/APAP 10/325 TAB PO PRN ×2 (07:22→17:02)
[2018-11-22] MEDS: INSULIN -REGULAR HUMAN 50 UNIT/0.5 ML ML SQ SCH ×4 (07:30→20:39)
[2018-11-22] MEDS: LOSARTAN/HCTZ 50-12.5 PO SCH (09:59)
[2018-11-22] MEDS: NA CHLORIDE 0.9% 1,000 ML IV SCH (10:00)
[2018-11-22] MEDS: ENOXAPARIN 40 MG/0.4 ML SQ SCH (10:02)
[2018-11-22] MEDS: VANCOMYCIN 2 GM in NA CHLORIDE 0.9% 500 ML IVPB SCH ×2 (10:21→20:36)
--- NOTE | 2018-11-22 18:34 | PN ---
The patient is seen and examined, charts were reviewed and case discussed with RN. The patient reports insomnia. Ambien 5 did not work for him last night. The patient still reports some pain, states he is doing okay with the catheter removed. Medications: List reviewed. Physical Examination: Vital Signs: Temperature 97, heart rate 90, blood pressure 125/57, respirations 18, O2 of 96% on room air. General: Awake, alert, oriented x3. Some mild distress, ill-appearing male, morbidly obese. CV: S1, S2. Regular rate and rhythm. Peripheral pulses present. Respiratory: Moving air well bilaterally. No wheezing or stridor. Gastrointestinal: Abdomen is soft, nontender, nondistended. Positive bowel sounds. Extremities: No clubbing, cyanosis, or edema. Neurologic: Nonfocal. Skin: Scrotal swelling has improved. Erythema is still present with spreading to the left thigh. Laboratory Data: Sodium 138, potassium 4, chloride 104, CO2 of 27, BUN 9, creatinine 0.71, glucose 186, calcium 8.1, albumin 2.8. WBC 7.3, H and H 12.5 and 38.8, platelets 244. Blood cultures, no growth to date. Scrotal wound cultures also show no growth to date. Assessment: A 43-year-old male with; 1. Scrotal cellulitis. We will continue with IV antibiotics, have been adjusted. The patient currently on vancomycin and meropenem. Appreciate Dr. Pang's input. 2. Diabetes mellitus type 2, non-insulin requiring with hyperglycemia. We will continue sliding scale insulin and monitor blood glucose levels, adjust insulin dose as necessary. 3. Essential hypertension, stable on home medications. 4. Mixed hyperlipidemia. We will continue statin. 5. Morbid obesity, BMI 55.8. 6. Deep venous thrombosis prophylaxis with Lovenox. Plan: Continue IV antibiotics, follow-up on culture results, likely discharge in the next 24 hours depending on clinical response, on p.o. antibiotics. Appreciate Dr. Martinez's and Dr. Pang's input. /GRABIEL Voice ID: [id number] Report ID: [id number] DANTE
[2018-11-22] MEDS: ATORVASTATIN 10 MG TAB PO SCH (20:36)
[2018-11-22] MEDS: ZOLPIDEM TARTRATE 10 MG TABLET PO PRN (20:39)
--- NOTE | 2018-11-22 21:50 | PN ---
Subjective: The patient was seen by Infectious Disease yesterday, well appreciated due to cellulitis spreading. Antibiotic was changed to meropenem and vancomycin. Discontinue Rocephin. Followup the patient and the patient today. His vital signs show that he is afebrile and stable, is m aking good urine output. The wound is clean. No pus. No significant erythema on the scrotum. The erythema on the left upper thigh seems to be receding. Good response to the meropenem. The upper dr ain in the scrotum seems pretty clean. The lower one may still be needed. I am thinking of removing the upper drain in the next 24 hours. The patient also showers twice a day and Hibiclens from head to toe and hopefully, discharge in a few more days. Thank you very much. TIMOTEO Voice ID: [id number] Report ID: [id number]
[2018-11-23] MEDS: Meropenem 500 MG in NA CHLORIDE 0.9% 100 ML IV SCH ×3 (00:28→16:10)
[2018-11-23] MEDS: MORPHINE 4 MG/ML SYR IV PRN ×2 (03:27→17:40)
[2018-11-23] MEDS: NA CHLORIDE 0.9% 1,000 ML IV SCH ×3 (04:23→20:29)
[2018-11-23] MEDS: PANTOPRAZOLE 40MG TABLET PO SCH (05:35)
[2018-11-23 06:12] LABS: BUN Blood Urea Nitrogen 9 mg/dL (7-18); Bicarbonate 27 mmol/L (21-32); Glucose Level 187 mg/dL (74-106); Phosphorus 2.6 mg/dL (2.5-4.9); Potassium 4.3 mmol/L (3.5-5.1); Sodium Level 138 mmol/L (136-145)
[2018-11-23 06:16] LABS: Absolute Lymphocytes (CBC) 1.6 K/uL (0.7-4.9); Absolute Monocytes 0.6 K/uL (0.1-1.3); Absolute Neutrophil 4.4 K/uL (1.8-8.0); Basophils % 0.7 % (0-1.3); Eosinophils % 5.4 % (0-4.4); Hematocrit 40.7 % (39.6-49.0); Lymphocytes % 22.2 % (15.3-44.8); MPV 8.4 fL (7.6-11.3); Monocytes % 9.1 % (3.3-12.3)
[2018-11-23] MEDS: INSULIN -REGULAR HUMAN 50 UNIT/0.5 ML ML SQ SCH ×4 (07:30→20:29)
[2018-11-23] MEDS: LOSARTAN/HCTZ 50-12.5 PO SCH (08:06)
[2018-11-23] MEDS: ENOXAPARIN 40 MG/0.4 ML SQ SCH (08:07)
[2018-11-23] MEDS: HYDROCODONE/APAP 10/325 TAB PO PRN ×3 (08:25→21:29)
--- NOTE | 2018-11-23 10:49 | PN ---
Subjective: The patient is resting. Physical Examination: Wounds looking really good. Redness is disappearing since he started IV meropenem. No cultures have grown anything so far. He may have some type of ESBL bug or something like that. Plan: So, I am planning to put a PICC line in and send him home on meropenem. Only 1 Gracia is lef t and that can be removed soon too. Plan is to continue therapy. White count still pending. Have a PICC line in place and arranged approximately 7 more days of meropenem. MOISÉS/GRABIEL Voice ID: [id number] Report ID: [id number]
--- NOTE | 2018-11-23 16:17 | PN ---
Subjective: The patient continues to complain of discomfort in the left scrotal area. Denies any ot her problems. No fevers. Objective: Vital Signs: Temperature 98, pulse 82, respirations 16, blood pressure 134/79. Lungs: Clear to auscultation. Heart: S1, S2. Regular. Abdomen: Soft. Back: Examination of left scrotal area shows the top Gracia drainage is removed, is not present, an d lower [place] drainage has no drainage at this time. Laboratory Data: Shows WBC 7000, hemoglobin 13.3, platelets are 275. Chemistry shows sodium 138, po tassium 4.3, chloride 104, bicarb 27, BUN 9, creatinine 0.7, glucose 187. Microdata, cultures are ne gative. Assessment And Plan: We will continue intravenous antibiotic. Consider getting PICC line. Perineal abscess with Gracia drainage in place, improving. Continue supportive care and wound care. We temitope l follow the patient as needed. NF/MODL Voice ID: [id number] Report ID: [id number]
--- NOTE | 2018-11-23 16:46 | PN ---
Date of Progress Note: 11/23/2018 Subjective: The patient is seen and examined, chart reviewed, and case discussed with Dr. Martinez. Th e patient continues to improve. No fevers overnight. The patient still reports some pain. Has been able to get up and move around. Took a shower today. Medications: List reviewed. Objective: Vital Signs: Temperature 96.8, heart rate 82, blood pressure 134/79, respirations 93% on room air. General: Awake, alert, oriented x3. Morbidly obese male, somewhat ill-appearing. CV: S1, S2. Regular rate and rhythm. Peripheral pulses present. Respiratory: Moving air well bilaterally. No wheezing or stridor. Gastrointestinal: Abdomen is soft, nontender, nondistended. Positive bowel sounds. Extremities: No clubbing, cyanosis, edema. Neurologic: Nonfocal. Skin: Scrotal erythema has improved significantly. No further erythema on the left thigh. One [place] drain has been removed. Second Gracia drain is still in place. Laboratory Data: Sodium 138, potassium 4.3, chloride 104, CO2 27, BUN 9, creatinine 0.71, glucose 18 7, calcium 8.6, phosphorus 2.6. WBC 7, H and H 13.3 and 40.7, platelets 275, neutrophils 62%. Blood cultures, no growth to date. Wound cultures from the scrotum also not showing any growth. Assessment: A 43-year-old male with: 1.Scrotal cellulitis, status post incision and drainage. Continue with intravenous antibiotics. Va ncomycin has been discontinued. Dr. Martinez's recommends intravenous meropenem for 2 weeks. Infectiou s Disease on board. 2.Diabetes mellitus type 2, non-insulin requiring with hyperglycemia. We will continue sliding scal e insulin and monitor blood glucose levels. 3.Essential hypertension, stable. We will continue home medications. 4.Mixed hyperlipidemia. We will continue on statin, stable. 5.Morbid obesity. Body mass index 55.8. 6.Deep venous thrombosis prophylaxis with Lovenox. Plan: Obtain PICC line, set up IV antibiotics with meropenem for 2 weeks. SA/MODL Voice ID: [id number] Report ID: [id number]
[2018-11-23] MEDS: ATORVASTATIN 10 MG TAB PO SCH (20:29)
[2018-11-23] MEDS: ZOLPIDEM TARTRATE 10 MG TABLET PO PRN (21:29)
[2018-11-24] MEDS: Meropenem 500 MG in NA CHLORIDE 0.9% 100 ML IV SCH ×3 (00:47→17:00)
[2018-11-24] MEDS: NA CHLORIDE 0.9% 1,000 ML IV SCH ×2 (02:29→20:03)
[2018-11-24] MEDS: MORPHINE 4 MG/ML SYR IV PRN ×2 (02:38→19:32)
[2018-11-24] MEDS: PANTOPRAZOLE 40MG TABLET PO SCH (05:32)
[2018-11-24 06:27] LABS: Absolute Monocytes 0.6 K/uL (0.1-1.3); Absolute Neutrophil 4.1 K/uL (1.8-8.0); Basophils % 0.7 % (0-1.3); Eosinophils % 5.5 % (0-4.4); Hematocrit 41.4 % (39.6-49.0); Lymphocytes % 27.5 % (15.3-44.8); MPV 8.4 fL (7.6-11.3); Monocytes % 8.6 % (3.3-12.3); RBC Red Blood Cell Count 4.66 M/uL (4.33-5.43)
[2018-11-24 06:43] LABS: BUN Blood Urea Nitrogen 10 mg/dL (7-18); Bicarbonate 29 mmol/L (21-32); Glucose Level 165 mg/dL (74-106); Potassium 4.2 mmol/L (3.5-5.1); Sodium Level 140 mmol/L (136-145)
[2018-11-24] MEDS: INSULIN -REGULAR HUMAN 50 UNIT/0.5 ML ML SQ SCH ×4 (07:30→20:04)
[2018-11-24] MEDS: HYDROCODONE/APAP 10/325 TAB PO PRN ×3 (07:36→21:30)
[2018-11-24] MEDS: LOSARTAN/HCTZ 50-12.5 PO SCH (09:13)
[2018-11-24] MEDS: ENOXAPARIN 40 MG/0.4 ML SQ SCH (09:13)
--- NOTE | 2018-11-24 13:09 | PN ---
Subjective: The patient is doing well. The cellulitis is getting much better on the IV meropenem. Vancomycin has been off. He is getting better, not worse. There is no drainage coming from the scro lisa wound. Plan: I went ahead and removed the last [place] this morning, set him up for a total of 14 days of I V meropenem. He is getting 500 t.i.d. We will ask pharmacy see if we can dose it b.i.d., so the pat ient will be able to go to work. The nylon sutures are still in place. We will leave those in for a while being that he is diabetic and slow healing, and we will leave those in for about 2 weeks. He is to follow up with me in 2 weeks. MOISÉS/GRABIEL Voice ID: [id number] Report ID: [id number]
--- NOTE | 2018-11-24 15:43 | RAD REPORT ---
EXAM DESCRIPTION: RAD - Chest Single View - 11/24/2018 3:35 pm CLINICAL HISTORY: PICC line placement COMPARISON: November 19 FINDINGS: Portable chest was obtained following placement of a right upper extremity PICC line. The catheter tip is in the distal SVC.
--- NOTE | 2018-11-24 15:47 | PN ---
Date of Progress Note: 11/24/2018 Subjective: The patient seen and examined, chart reviewed, and case discussed with RN. The patient states that he feels better. Case discussed with Dr. Martinez. Medications: List reviewed. Objective: Vital Signs: Temperature 96.7, heart rate 86, blood pressure 148/85, respirations 16, O2 96% on room air. General: Awake, alert, oriented x3, not in any acute distress. Morbidly obese male. BMI 55. CV: S1, S2. Regular rate and rhythm. Peripheral pulses present. Respiratory: Moving air well bilaterally. No wheezing or stridor. Gastrointestinal: Abdomen is soft, nontender, nondistended. Positive bowel sounds. Extremities: No clubbing, cyanosis, or edema. Neurologic: Nonfocal. Skin: Scrotal wound with packing. [place] drain is now removed. Erythema has significantly improve d. Laboratory Data: Sodium 140, potassium 4.2, chloride 104, CO2 29, BUN 10, creatinine 0.76, glucose 1 65, calcium 8.5. WBC 7.1, H and H 13.6 and 41.4, platelets 287. Blood cultures show no growth to da te. Wound cultures also show no growth. Assessment: A 43-year-old male with: 1.Scrotal cellulitis, status post incision and drainage. Drains out. We will continue with meropene m for 2 weeks. The patient is awaiting PICC line placement. 2.Diabetes mellitus type 2, fjq-owmrloe-lfycrhnvz with hyperglycemia. Continue sliding scale insuli n and monitor blood glucose levels. 3.Essential hypertension, stable, on home medications. 4.Mixed hyperlipidemia. Continue statin. 5.Morbid obesity. Body mass index 55.8. 6.Deep venous thrombosis prophylaxis with Lovenox. Plan: Obtain PICC line and discharge once IV antibiotics have been set up at home. SA/MODL Voice ID: [id number] Report ID: [id number]
[2018-11-24] MEDS: ATORVASTATIN 10 MG TAB PO SCH (20:03)
[2018-11-24] MEDS: ZOLPIDEM TARTRATE 10 MG TABLET PO PRN (21:31)
[2018-11-25] MEDS: Meropenem 500 MG in NA CHLORIDE 0.9% 100 ML IV SCH ×3 (00:01→16:56)
[2018-11-25] MEDS: PANTOPRAZOLE 40MG TABLET PO SCH (05:42)
[2018-11-25] MEDS: INSULIN -REGULAR HUMAN 50 UNIT/0.5 ML ML SQ SCH ×4 (07:30→20:00)
[2018-11-25] MEDS: ENOXAPARIN 40 MG/0.4 ML SQ SCH (08:35)
[2018-11-25] MEDS: LOSARTAN/HCTZ 50-12.5 PO SCH (08:36)
[2018-11-25] MEDS: NA CHLORIDE 0.9% 1,000 ML IV SCH ×2 (09:59→22:00)
--- NOTE | 2018-11-25 14:37 | PN ---
Subjective: The patient is feeling well, is doing well. Objective: Wound is healing nicely. No pus. [place] are completely out. He got his PICC line plac ed. He is set up for IV meropenem t.i.d. for another 10 days at home. Follow up with me after that to have his sutures removed. He is to shower in Hibiclens twice a day. Otherwise, patient is doing well. Afebrile. Vital signs stable. Continue therapy. Thank you very much. MOISÉS/GRABIEL Voice ID: [id number] Report ID: [id number]
--- NOTE | 2018-11-25 17:28 | PN ---
Date of Progress Note: 11/25/2018 Subjective: The patient is seen and examined. Chart reviewed and case discussed with RN and Dr. Stephan parikh. The patient denies any significant events overnight. Pain is well controlled. Medications: List reviewed. Physical Examination: Vital Signs: Temperature 97.3, heart rate 85, blood pressure 127/62, respirations 16, O2 97% on room air. General: Awake, alert, oriented x3, not in any acute distress. Morbidly obese male. CV: S1, S2. Regular rate and rhythm. Peripheral pulses present. Respiratory: Moving air well bilaterally. No wheezing or stridor. Gastrointestinal: Abdomen is soft, nontender, nondistended. Positive bowel sounds. Extremities: No clubbing, cyanosis, or edema. Neurologic: Nonfocal. Skin: Scrotal wound is packed. Minimal surrounding erythema. No erythema on the lower extremity. Laboratory Data: Pending. Assessment And Plan: A 43-year-old male with: 1.Scrotal cellulitis, status post incision and drainage. Gracia drains have been removed. Continu e with meropenem for another 10 days for a total of 2 weeks. PICC line was placed last night. Outpa tient IV antibiotic setup is still pending. 2.Diabetes mellitus, type 2, [id number]-ecpahnhzd with hyperglycemia. We will continue with slidin g scale insulin. Monitor blood glucose levels. 3.Essential hypertension, stable. Continue medications. 4.Mixed hyperlipidemia. Continue statin. 5.Morbid obesity, body mass index 55. 6.Deep vein thrombosis prophylaxis with Lovenox. Plan: Discharge once IV antibiotics have been set up at home. Daughter and are willing to be t aught how to do the infusions, which will be 3 times a day. 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 SA/MODL Voice ID: [id number] Report ID: [id number]
[2018-11-25] MEDS: ZOLPIDEM TARTRATE 10 MG TABLET PO PRN (20:00)
[2018-11-25] MEDS: ATORVASTATIN 10 MG TAB PO SCH (20:00)
[2018-11-26] MEDS: Meropenem 500 MG in NA CHLORIDE 0.9% 100 ML IV SCH ×2 (00:42→09:45)
[2018-11-26] MEDS: NA CHLORIDE 0.9% 1,000 ML IV SCH (04:42)
[2018-11-26] MEDS: PANTOPRAZOLE 40MG TABLET PO SCH (05:47)
[2018-11-26 06:27] LABS: Absolute Lymphocytes (CBC) 1.7 K/uL (0.7-4.9); Absolute Monocytes 0.6 K/uL (0.1-1.3); Absolute Neutrophil 5.3 K/uL (1.8-8.0); Eosinophils % 4.4 % (0-4.4); Hematocrit 40.5 % (39.6-49.0); Lymphocytes % 21.5 % (15.3-44.8); MPV 8.3 fL (7.6-11.3); Monocytes % 7.8 % (3.3-12.3); RBC Red Blood Cell Count 4.61 M/uL (4.33-5.43)
[2018-11-26 06:46] LABS: ALT/SGPT 40 U/L (12-78); AST/SGOT 26 U/L (15-37); Albumin 2.6 g/dL (3.4-5.0); Alkaline Phosphatase 77 U/L (45-117); BUN Blood Urea Nitrogen 9 mg/dL (7-18); Bicarbonate 30 mmol/L (21-32); Bilirubin Total 0.3 mg/dL (0.2-1.0); Glucose Level 183 mg/dL (74-106); Potassium 3.9 mmol/L (3.5-5.1); Protein, Total 6.1 g/dL (6.4-8.2); Sodium Level 141 mmol/L (136-145)
[2018-11-26] MEDS: INSULIN -REGULAR HUMAN 50 UNIT/0.5 ML ML SQ SCH ×3 (07:30→16:25)
[2018-11-26] MEDS: LOSARTAN/HCTZ 50-12.5 PO SCH (09:45)
[2018-11-26] MEDS: ENOXAPARIN 40 MG/0.4 ML SQ SCH (09:45)
--- NOTE | 2018-11-26 12:29 | PN ---
Subjective: The patient is feeling well. No complaints. is present with him in the room. No significant events overnight. Pain is well controlled. No fascial oozing from the wounds. Wound is almost closed where the Gracia were. Medications: Reviewed. The patient is on meropenem 500 b.i.d. Objective: Physical exam, afebrile stable. General: He is awake, alert, and oriented. Exam: Scrotal wound is closed. Minimal erythema. Sutures intact, [place] drain, holes are heali ng up. Laboratory Data: Pending. Assessment: Scrotal abscess, most likely ESBL, responding well to meropenem, continue meropenem for a total of 14 days. He will need about 10 more days at home. Sutures can be removed after 2 weeks o r so. Follow up with me agustin MAHMOOD Voice ID: [id number] Report ID: [id number]
[2018-11-26] MEDS ORDERED: ERTAPENEM SODIUM 1 GM VIAL IVPB SCH (17:00)
[2018-11-26] MEDS ORDERED: ERTAPENEM NA 1 GM in NA CHLORIDE 0.9% 100 ML IVPB SCH (17:00)
--- NOTE | 2018-11-26 22:06 | PN ---
Subjective: The patient lying in bed. No nuclear when chart reviewed. Objective: Vital Signs: Temperature 97, pulse 82, respirations 16, blood pressure 124/58. Lungs: clear to auscultation. Heart: S1 and S2, regular. Abdomen: Soft and nontender. Extremities: No edema. Perineal wound noted. Laboratory Data: Shows WBC 8.1, hemoglobin 13, platelets 267/. Chemistry within normal limits excep t elevated blood sugar. Micro data, no growth in the blood or wound. Assessment And Plan: Currently switched to Invanz, continue total course of 2 weeks. Follow up with the Wound Care Team or Urology Team. We will follow the patient as needed. CASTILLO/GRABIEL Voice ID: [id number] Report ID: [id number]
--- NOTE | 2018-11-27 09:46 | DS ---
Date of Discharge: 11/26/2018 Consultants: Dr. Martinez with Urology, Dr. Pang with Infectious Disease. Procedure: Scrotal abscess incision and drainage. Admitting Diagnoses: 1.Scrotal cellulitis. 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 3.Essential hypertension. 4.Mixed hyperlipidemia. 5.Morbid obesity. BMI 55. Discharge Diagnoses: 1.Scrotal cellulitis, status post incision and drainage. 2.Diabetes mellitus type 2, non-insulin requiring, with hyperglycemia, stable. 3.Essential hypertension, stable. 4.Mixed hyperlipidemia, on statin. 5.Morbid obesity. BMI 55. Hospital Course: The patient is a 43-year-old male with past medical history of diabetes, hypertensi on, hyperlipidemia, comes in with scrotal cellulitis. The patient has had an I and D done in the ER and was sent to follow up with Dr. Martinez as an outpatient, however, came in for worsening symptoms, f ever and pain. The patient did have an elevated lactate level at 2.3, but was not septic. CT scan s howed cellulitis. He was started on IV antibiotics and IV fluids. Cultures were obtained which claudia ined negative. Dr. Martinez was consulted. He recommended incision and drainage, which was done. The patient's cellulitis initially took a turn for the worse with spreading to the lower extremities, how ever, improved. The patient's white count normalized. He was then afebrile. Redness had resolved. [place] drains were then removed. The patient was instructed to shower in Hibiclens twice a day. T he patient was started on meropenem and vancomycin. Vancomycin was discontinued. Infectious Disease was also consulted. The patient is felt to have resistant infection, likely not positive on culture s due to previous treatment in the ER on previous stay. The patient was then set up with home health for home IV infusions with meropenem for a total of 14 days. PICC line was placed. He was cleared for discharge from analytical consultant's standpoint. He is doing well, ambulating. Pain had essentially reso lved. The patient was instructed to follow up with PCP in 2 to 3 days. Follow up with urologist, Dr Carlos Martinez, in 1 week. Return to ER for worsening condition. Follow up with ID, Dr. Pang, in 2 weeks . Diet: Diabetic. Activity: As tolerated. Medications: As per medication reconciliation list. Physical Examination: General: Awake, alert, oriented x3. Morbidly obese male. CV: S1, S2. No murmurs. Respiratory: Moving air well bilaterally. No wheezing. Gastrointestinal: Abdomen is soft, nontender, nondistended. Positive bowel sounds. Extremities: No clubbing, cyanosis, or edema. Neurologic: Nonfocal. Skin: Scrotal cellulitis improved. Erythema has essentially resolved. Stitches in place. Wound is clean, dry, and intact. SA/MODL Voice ID: [id number] Report ID: [id number]
== END 2018-11-26 17:53 | disposition home health service (06) | DRG 728 ==
LOC: ER 09:56 → ERHOLD 15:54 → 4TH 16:47 → OBSVTOIN 11-20 14:46
PROVIDERS: ADMIT Family Medicine; ATTEND Family Medicine
PROC: 0V9500Z Drainage of Scrotum with Drainage Device, Open Approach (ICD-10-PCS; principal; 2018-11-20 15:00)
PROC: 02HV33Z Insertion of Infusion Device into Superior Vena Cava, Percutaneous Approach (ICD-10-PCS; 2018-11-24)
DX: N49.2 Inflammatory disorders of scrotum (principal); Z68.43 Body mass index [BMI] 50.0-59.9, adult; E11.65 Type 2 diabetes mellitus with hyperglycemia; I10 Essential (primary) hypertension; E78.2 Mixed hyperlipidemia; E66.01 Morbid (severe) obesity due to excess calories; Z79.4 Long term (current) use of insulin; Z79.84 Long term (current) use of oral hypoglycemic drugs
CPT/HCPCS: 36415; 71045; 74177; 80048; 80053; 80202; 81003; 82962; 83605; 83735; 84100; 84145; 85025; 87040; 87070; 87075; 87205; 94760; 96361; 96365; 96367; 96375; 99285; G0378; J0330; J0696; J1335; J1650; J1940; J2250; J2704; J3010; J3370; J7030; Q9967

== ENCOUNTER 2018-12-27 11:46 | Emergency (ER) | payer BC ==
[2018-12-27 12:49] LABS: Absolute Monocytes 0.6 K/uL (0.1-1.3); Absolute Neutrophil 4.8 K/uL (1.8-8.0); Basophils % 0.5 % (0-1.3); Eosinophils % 3.7 % (0-4.4); Hematocrit 44.5 % (39.6-49.0); Lymphocytes % 26.1 % (15.3-44.8); MPV 9.2 fL (7.6-11.3); Monocytes % 7.4 % (3.3-12.3); RBC Red Blood Cell Count 5.07 M/uL (4.33-5.43)
--- NOTE | 2018-12-27 13:03 | RAD REPORT ---
EXAM DESCRIPTION: USExtrem Venous W Compress Bil12/27/2018 12:55 pm CLINICAL HISTORY: Bilateral leg pain COMPARISON: none FINDINGS: The common femoral, superficial femoral, popliteal and posterior tibial veins bilaterally are compressible and demonstrate augmentation. Doppler demonstrates good flow. IMPRESSION: No evidence of deep venous thrombosis involving either lower extremity.
[2018-12-27 13:12] LABS: BUN Blood Urea Nitrogen 14 mg/dL (7-18); Bicarbonate 25 mmol/L (21-32); Glucose Level 191 mg/dL (74-106); Magnesium 2.1 mg/dL (1.8-2.4); NT PRO-BNP 38 pg/mL (<125); Potassium 3.8 mmol/L (3.5-5.1); Sodium Level 138 mmol/L (136-145); Troponin (Emerg Dept Use Only) < 0.02 ng/mL (0.0-0.045)
--- NOTE | 2018-12-27 13:32 | ER ---
Nurse's Notes [facility] Name: Albert Leach Age: 43 yrs Sex: Male : 1975 Arrival Date: 12/27/2018 Time: 11:47 Bed 13 Private MD: Vinny Sanchez Diagnosis: Dyspnea Presentation: 12/27 12:10 Presenting complaint: Patient states: i was told to come here after my Cat scan, i get tw2 sob just walking anywhere. Transition of care: patient was not received from another setting of care. Onset of symptoms was December 27, 2018. Risk Assessment: Do you want to hurt yourself or someone else? Patient reports no desire to harm self or others. Initial Sepsis Screen: Does the patient meet any 2 criteria? No. Patient's initial sepsis screen is negative. Does the patient have a suspected source of infection? No. Patient's initial sepsis screen is negative. Care prior to arrival: None. 12:10 Method Of Arrival: Ambulatory tw2 12:10 Acuity: LITA 2 tw2 Triage Assessment: 12:07 General: Appears in no apparent distress. obese, Behavior is calm, cooperative, tw2 appropriate for age. Pain: Denies pain. Historical: - Allergies: 12:10 No Known Allergies; tw2 - Home Meds: 12:10 lovastatin 20 mg Oral tab [Active]; metformin 1,000 mg oral tab 1 tab 2 times per day tw2 [Active]; losartan-hydrochlorothiazide Oral [Active]; Bystolic 5 mg oral tab 1 tab once daily [Active]; amoxicillin 500 mg Oral cap 1 cap every 8 hours [Active]; - PMHx: 12:10 Hypertension; Hyperlipidemia; Diabetes - NIDDM; tw2 - PSHx: 12:10 abscess, groin area; tw2 - Immunization history:: Adult Immunizations not up to date. - Social history:: Smoking status: Patient/guardian denies using tobacco. - Ebola Screening: : Patient denies travel to an Ebola-affected area in the 21 days before illness onset. Screenin:33 Abuse screen: Denies threats or abuse. Denies injuries from another. Nutritional ls4 screening: No deficits noted. Tuberculosis screening: No symptoms or risk factors identified. Fall Risk None identified. Assessment: 12:15 General: Appears in no apparent distress. ls4 12:15 Neuro: No deficits noted. Cardiovascular: Denies chest pain, diaphoresis, nausea, ls4 Patient's skin is warm and dry. Respiratory: Airway is patent Respiratory effort is even, unlabored, Respiratory pattern is regular, Parent/caregiver reports the patient having shortness of breath on exertion. Musculoskeletal: Circulation, motion, and sensation intact. Capillary refill < 3 seconds, Range of motion: intact in all extremities. 13:05 Reassessment: Patient and/or family updated on plan of care and expected duration. Pain ls4 level reassessed. Patient is alert, oriented x 3, equal unlabored respirations, skin warm/dry/pink. 14:05 Reassessment: Patient and/or family updated on plan of care and expected duration. Pain ls4 level reassessed. Patient is alert, oriented x 3, equal unlabored respirations, skin warm/dry/pink. 15:01 Reassessment: Patient appears in no apparent distress at this time. Patient and/or ls4 family updated on plan of care and expected duration. Pain level reassessed. Patient is alert, oriented x 3, equal unlabored respirations, skin warm/dry/pink. Vital Signs: 12:07 BP 107 / 52; Pulse 87; Resp 18; Temp 98.1(O); Pulse Ox 97% on R/A; Weight 181.44 kg; tw2 Height 5 ft. 11 in. (180.34 cm) (R); Pain 0/10; 13:32 BP 117 / 61; Pulse 82; Resp 16; Pulse Ox 96% on R/A; Pain 0/10; ls4 14:59 BP 118 / 60; Pulse 80; Resp 16; Pulse Ox 99% on R/A; Pain 0/10; ls4 12:07 Body Mass Index 55.79 (181.44 kg, 180.34 cm) tw2 ED Course: 11:47 Patient arrived in ED. rg4 11:47 Vinny Sanchez MD is Private Physician. rg4 12:07 Arm band placed on. tw2 12:11 Triage completed. tw2 12:11 Geetha Carter FNP-C is [facility]. kb 12:11 Albert Singh MD is Attending Physician. kb 12:40 Initial lab(s) drawn, by me, sent to lab. EKG done, by technology auditor. reviewed by Geetha ROSALES. Inserted saline lock: 20 gauge in right antecubital area, using aseptic technique. Blood collected. 12:45 Snadra Toure, RN is Primary Nurse. ls4 12:56 US Extremity Venous W Compression Dimitry In Process Unspecified. EDMS 13:10 Basic Metabolic Panel Sent. ls4 13:10 CBC with Diff Sent. ls4 13:23 X-ray completed. Portable x-ray completed in exam room. Patient tolerated procedure sw well. 13:24 XRAY Chest (1 view) In Process Unspecified. EDMS 13:30 Tanvi Haddad MD is Hospitalizing Provider. kb 13:33 Patient has correct armband on for positive identification. Bed in low position. Call ls4 light in reach. Side rails up X 1. 13:33 No provider procedures requiring assistance completed. ls4 15:02 IV discontinued, intact, bleeding controlled, No redness/swelling at site. Pressure ls4 dressing applied. Administered Medications: No medications were administered Outcome: 13:31 Decision to Hospitalize by Provider. kb 14:42 Discharge ordered by MD. kb 15:01 Discharged to home ambulatory, with family. ls4 15:01 Condition: stable 15:01 Discharge instructions given to patient, family, Instructed on discharge instructions, follow up and referral plans. medication usage, safety practices, Demonstrated understanding of instructions, follow-up care, medications. 15:02 Patient left the ED. ls4 Signatures: Dispatcher [employer] EDMI Subhash Cristina Kristin, FNP-C FNP-Emeli Cuba Tara, RN RN 2 Mary Anne Mora 4 Sandra Toure, RN RN ls4
--- NOTE | 2018-12-27 13:33 | EDPHYS ---
Physician Documentation [facility] Name: Albert Leach Age: 43 yrs Sex: Male : 1975 Arrival Date: 12/27/2018 Time: 11:47 Bed 13 Private MD: Vinny Sanchez ED Physician Albert Singh HPI: 12/27 13:00 This 43 yrs old Male presents to ER via Ambulatory with complaints of kb Abnormal CT. 13:00 The patient has shortness of breath with light activity. Onset: The symptoms/episode kb began/occurred 1.5 week(s) ago. Duration: The symptoms are intermittent. The patient's shortness of breath is aggravated by exertion, light activity. Associated signs and symptoms: Pertinent positives: chest pain. Severity of symptoms: At their worst the symptoms were moderate in the emergency department the symptoms are unchanged. The patient has not experienced similar symptoms in the past. The patient has been recently seen by a physician:. Pt reports he went to his doctor a week and a half ago because he was having shortness of breath. Reports it is worse with exertion and when he has the shortness of breath he has pain in his chest with deep inspiration. Had surgery in mid November for drainage and washout of infection in groin, was in hospital for a week and went home on IV antibiotics through a PICC line. Was seen by [facility] and had an echo done that showed thickened wall of heart and cardiomegaly. Had a resting HR of 115 at that time so he was placed on Bystolic. States the shortness of breath has been better since then, but still bad when he walks a short distance. Had CT chest with IV contrast done today and was told to come to ER for possible PE. Historical: - Allergies: 12:10 No Known Allergies; tw2 - Home Meds: 12:10 lovastatin 20 mg Oral tab [Active]; metformin 1,000 mg oral tab 1 tab 2 times per day tw2 [Active]; losartan-hydrochlorothiazide Oral [Active]; Bystolic 5 mg oral tab 1 tab once daily [Active]; amoxicillin 500 mg Oral cap 1 cap every 8 hours [Active]; - PMHx: 12:10 Hypertension; Hyperlipidemia; Diabetes - NIDDM; tw2 - PSHx: 12:10 abscess, groin area; tw2 - Immunization history:: Adult Immunizations not up to date. - Social history:: Smoking status: Patient/guardian denies using tobacco. - Ebola Screening: : Patient denies travel to an Ebola-affected area in the 21 days before illness onset. ROS: 12:55 Constitutional: Negative for fever, chills, and weight loss, ENT: Negative for injury, kb pain, and discharge, Neck: Negative for injury, pain, and swelling, Abdomen/GI: Negative for abdominal pain, nausea, vomiting, diarrhea, and constipation, Back: Negative for injury and pain, MS/Extremity: Negative for injury and deformity, Skin: Negative for injury, rash, and discoloration, Neuro: Negative for headache, weakness, numbness, tingling, and seizure. 12:55 Cardiovascular: Positive for chest pain, Negative for edema, orthopnea, palpitations, paroxysmal nocturnal dyspnea. 12:55 Respiratory: Positive for dyspnea on exertion, shortness of breath, Negative for cough, hemoptysis, orthopnea, pleurisy, sputum production, wheezing. Exam: 13:00 Constitutional: This is a well developed, well nourished patient who is awake, alert, kb and in no acute distress. Head/Face: Normocephalic, atraumatic. Neck: Trachea midline, no thyromegaly or masses palpated, and no cervical lymphadenopathy. Supple, full range of motion without nuchal rigidity, or vertebral point tenderness. No Meningismus. Chest/axilla: Normal chest wall appearance and motion. Nontender with no deformity. No lesions are appreciated. Cardiovascular: Regular rate and rhythm with a normal S1 and S2. No gallops, murmurs, or rubs. Normal PMI, no JVD. No pulse deficits. Respiratory: Lungs have equal breath sounds bilaterally, clear to auscultation and percussion. No rales, rhonchi or wheezes noted. No increased work of breathing, no retractions or nasal flaring. Abdomen/GI: Soft, non-tender, with normal bowel sounds. No distension or tympany. No guarding or rebound. No evidence of tenderness throughout. Back: No spinal tenderness. No costovertebral tenderness. Full range of motion. Skin: Warm, dry with normal turgor. Normal color with no rashes, no lesions, and no evidence of cellulitis. MS/ Extremity: Pulses equal, no cyanosis. Neurovascular intact. Full, normal range of motion. Neuro: Awake and alert, GCS 15, oriented to person, place, time, and situation. Cranial nerves II-XII grossly intact. Motor strength 5/5 in all extremities. Sensory grossly intact. Cerebellar exam normal. Normal gait. 13:04 ECG was reviewed by the Attending Physician. kb Vital Signs: 12:07 BP 107 / 52; Pulse 87; Resp 18; Temp 98.1(O); Pulse Ox 97% on R/A; Weight 181.44 kg; tw2 Height 5 ft. 11 in. (180.34 cm) (R); Pain 0/10; 13:32 BP 117 / 61; Pulse 82; Resp 16; Pulse Ox 96% on R/A; Pain 0/10; ls4 14:59 BP 118 / 60; Pulse 80; Resp 16; Pulse Ox 99% on R/A; Pain 0/10; ls4 12:07 Body Mass Index 55.79 (181.44 kg, 180.34 cm) tw2 MDM: 12:11 Patient medically screened. kb 12:25 Data reviewed: vital signs, nurses notes. Data interpreted: Pulse oximetry: on room air kb is 97 %. Interpretation: normal. 12:54 The patient's Wells Deep Vein Thrombosis Score was calculated as follows: Imm/Surg in kb last 4 wks (1.5 Pts) Total Score: 0-2 Pts- Low Risk. The patient's pulmonary embolism risk score was calculated as follows: patient has experienced immobilization or surgery in the last four weeks (1.5 Pts) Total Score: 0-2 points. This patient was found to be at low risk for a pulmonary embolism by using the Well's assessment criteria. 13:07 ED course: Reviewed [facility] from [facility]. Filing defects are kb suspected in the pulmonary arteries. PE cannot be definitely excluded. Follow up with CT scan of chest using PE protocol, V/P scan, and doppler eval of venous system to r/o DVT are recommended. Scan was done with IV contrast so a PE study cannot be done today. Discussed with Dr Singh. In agreement that pt needs to be admitted for further evaluation to definitively rule out PE.. 13:30 Counseling: I had a detailed discussion with the patient and/or guardian regarding: the kb historical points, exam findings, and any diagnostic results supporting the discharge/admit diagnosis, lab results, radiology results, the need for further work-up and treatment in the hospital. 14:45 ED course: Dr Haddad evaluated pt in ER. Set up for pt to have VQ scan in the morning at kb 0700. She will follow up on results and contact pt. . 12/27 12:20 Order name: Basic Metabolic Panel kb 12/27 12:20 Order name: CBC with Diff kb 12/27 12:20 Order name: Magnesium; Complete Time: 13:14 kb 12/27 12:20 Order name: NT PRO-BNP; Complete Time: 13:14 kb 12/27 12:20 Order name: PT-INR; Complete Time: 13:04 kb 12/27 12:20 Order name: Troponin (emerg Dept Use Only); Complete Time: 13:14 kb 12/27 12:20 Order name: XRAY Chest (1 view); Complete Time: 14:01 kb 12/27 12:20 Order name: EKG; Complete Time: 12:21 kb 12/27 12:20 Order name: Cardiac monitoring; Complete Time: 12:40 kb 12/27 12:20 Order name: EKG - Nurse/Tech; Complete Time: 12:40 kb 12/27 12:21 Order name: Basic Metabolic Panel; Complete Time: 13:14 EDMS 12/27 12:21 Order name: CBC with Automated Diff; Complete Time: 13:04 EDMS 12/27 12:29 Order name: US Extremity Venous W Compression Dimitry; Complete Time: 13:04 kb 12/27 12:20 Order name: IV Saline Lock; Complete Time: 12:40 kb 12/27 12:20 Order name: Labs collected and sent; Complete Time: 12:40 kb 12/27 12:20 Order name: O2 Per Protocol; Complete Time: 12:21 kb 12/27 12:20 Order name: O2 Sat Monitoring; Complete Time: 12:21 kb EC:04 Rate is 95 beats/min. Rhythm is regular, Normal Sinus Rhythm. QRS [place] is Normal. NV kb interval is normal at 158 msec. QRS interval is normal at 88 msec. QT interval is normal at 366 msec. Clinical impression: Normal ECG. Interpreted by me. Reviewed by me. Administered Medications: No medications were administered Disposition: 12/28 09:13 Co-signature as Attending Physician, Albert Singh MD I agree with the assessment and kdr plan of care. Disposition: 12/27/18 14:42 Discharged to Home. Impression: Dyspnea. - Condition is Stable. - Discharge Instructions: Pulmonary Embolism, Shortness of Breath, [id number]. - Medication Reconciliation Form, Thank You Letter, Antibiotic Education, Prescription Opioid Use form. - Follow up: Emergency Department; When: As needed; Reason: Worsening of condition. Follow up: Private Physician; When: 2 - 3 days; Reason: Recheck today's complaints, Continuance of care, Re-evaluation by your physician. - Notes: Come to ER registration at 0630 tomorrow (12/28/18) for VQ scan. Return for worsening symptoms or any other concerns. Signatures: Dispatcher [employer] EDMS Geetha Carter, LEYDA-C [employer] HELPER-Albert Morse MD MD [facility] Eden Sanchez RN RN tw2 Sandra Toure RN RN ls4 Corrections: (The following items were deleted from the chart) 12/27 13:07 13:00 Pt reports he went to his doctor a week and a half ago because he was having kb shortness of breath. Reports it is worse with exertion and when he has the shortness of breath he has pain in his chest with deep inspiration. Had surgery in mid November for drainage and washout of infection in groin, was in hospital for a week and went home on IV antibiotics through a PICC line. kb 14:42 13:31 Hospitalization Ordered by Tanvi Haddad MD for Observation. Preliminary diagnosis kb is Dyspnea. Bed requested for Telemetry/MedSurg (observation). Status is Observation. Condition is Stable. Problem is new. Symptoms are unchanged. UTI on Admission? No. kb 15:02 14:42 12/27/2018 14:42 Discharged to Home. Impression: Dyspnea. Condition is Stable. ls4 Forms are Medication Reconciliation Form, Thank You Letter, Antibiotic Education, Prescription Opioid Use. Follow up: Emergency Department; When: As needed; Reason: Worsening of condition. Follow up: Private Physician; When: 2 - 3 days; Reason: Recheck today's complaints, Continuance of care, Re-evaluation by your physician. kb
--- NOTE | 2018-12-27 13:55 | RAD REPORT ---
EXAM DESCRIPTION: RAD - Chest Single View - 12/27/2018 1:24 pm CLINICAL HISTORY: Chest pain, dyspnea, shortness of breath COMPARISON: December 20 TECHNIQUE: AP portable chest image was obtained 1321 hours . FINDINGS: No peripheral mass or consolidation. No significant failure or volume overload. Lung cristi ngs are not substantially different comparison when adjusting for portable technique versus prior PA technique. Body habitus also contributes to accentuated chest findings. Heart and vasculature are normal. No measurable pleural effusion and no pneumothorax. No acute bony abnormality seen. No acute aortic findings suspected. IMPRESSION: No acute cardiopulmonary process. No significant change from comparison.
--- NOTE | 2018-12-27 15:56 | P.CNS ---
Date of Consult: 12/27/18 Reason for Consult: SOB w/ exertion, abnormal CT scan Requesting Physician: Geetha Carter Primary Care Provider: Dr. Tidwell at [facility] Chief Complaint: SOB w/ exertion History of Present Illness: This is a 43 yr old male with HTN, HLD and DM2 who presented to the ER with chief complaint of Shortness of breath. Per patient, he had surgery in mid November for drainage and washout of infection in groin, was in hospital for a week and went home on IV antibiotics through a PICC line. He was seen by Dr. Graf about 1.5 weeks ago and had an echo done that showed thickened wall of heart and cardiomegaly. He had a resting HR of 115 at that time so he was started on Bystolic. Pateint states the SOB has improved since last week but still gets worse with exertion. He also had a CXR done 1 week ago which noted some abnormal mediastinal fat vs lymphnodes and he was recommended to get a CT chest with IV contrast. He had CT chest with IV contrast done today and was told to come to ER for possible PE. In thE ED, he was hemodynamically stable. His Ultrasound was negative for B/L LE DVT. At the time of my exam, he was AAOx3, walking around in no acute distress. He was hemodynamically stable. Allergies No Known Allergies Allergy (Unverified 11/19/18 13:23) Home medications list reviewed: Yes Home Medications: Esomeprazole Mag Trihydrate [Nexium] 40 mg PO DAILY 11/19/18 Losartan/Hydrochlorothiazide [Losartan-Hctz 100-25 mg Tab] 1 tab PO DAILY Lovastatin 20 mg PO BEDTIME 11/19/18 Metformin HCl [Metformin HCl ER] 1,000 mg PO BID 11/19/18 Ertapenem Na [Invanz] 1 gm IV DAILY #1 vial 11/26/18 - Past Medical/Surgical History Diabetic: Yes -: Hypertension -: Hyperlipidemia -: Non-insulin dependent diabetes mellitus type 2 -: removal of cyst to groin Psychosocial/ Personal History: Lives with daughter in [place] - Social History CD- Drugs: No Caffeine use: No Review of Systems 10-point ROS is otherwise unremarkable Physical Examination General: Alert, In no apparent distress, Oriented x3, Obese HEENT: Atraumatic, PERRLA, Mucous membr. moist/pink, EOMI, Sclerae nonicteric Neck: Supple, 2+ carotid pulse no bruit, No LAD, Without JVD or thyroid abnormality Respiratory: Clear to auscultation bilaterally, Normal air movement Cardiovascular: Regular rate/rhythm, Normal S1 S2 Gastrointestinal: Normal bowel sounds, No tenderness Musculoskeletal: No tenderness Integumentary: No rashes Neurological: Normal gait, Normal speech, Normal tone, Normal affect Laboratory Data (last 24 hrs) 12/27/18 12:30: PT 11.8, INR 1.00 12/27/18 12:30: WBC 7.7, Hgb 14.4, Hct 44.5, Plt Count 252 12/27/18 12:30: Sodium 138, Potassium 3.8, BUN 14, Creatinine 1.04, Glucose 191 H, Magnesium 2.1 Conclusions/Impression: Patient presented to the ER with Abnormal CT chest with possibility of PE. CT scan that was done was not PE protocol and therefore the results were equivocal to evaluate for PE. The read stated possibility of PE vs artifact. Patient did have a 1 week stay after a groin washout about 6 weeks ago. Unfortunately, we were unable to repeat a CT PE protocol as patient had one done this morning. I called Nuclear medicine to see if VQ scan could be done today. It is a 4 hr long test and as pt would not be able to remain in the ER for that time, he was hemodynamically stable, in no acute distress, USx was negative for DVT bilaterally, physical exam was normal and he wanted to go home tonight, the decision was made for the VQ scan to be done as an outpatient. I discussed with Sagar in Nuclear medicine - pt is scheduled for VQ scan at 7:00 am on 12/28. A prescription for VQ scan was given to the patient and it was faxed to Nuclear medicine department. His diagnosis/treatment plan was explained to him and his daughter. They verbalized understanding. All questions were answered. He was then discharged home from the ER in a safe and stable manner. Return to ER precautions were provided to him in detail. He will have a VQ scan tomorrow morning. If results are with no probability, no further treatment needed. If moderate or higher probability for PE, will treat with oral anticoagulation. Time Spent Managing Pts care (In Minutes): 60
--- NOTE | 2018-12-27 16:30 | EKG ---
Test Date: 2018-12-27 Test Time: 12:23:59 Biomass Production Manager: SON MEASUREMENT RESULTS: Intervals: Rate: 95 SD: 158 QRSD: 88 QT: 366 QTc: 459 [place]: P: 55 SD: 158 QRS: 65 T: 59 INTERPRETIVE STATEMENTS: Normal sinus rhythm Normal ECG Compared to ECG 12/20/2018 11:19:28 Sinus tachycardia no longer present Electronically Signed On 12-27-18 16:29:15 CDT by Gualberto Wilson
== END 2018-12-27 15:02 | disposition home or self-care (01) ==
LOC: ER 11:46
DX: R06.00 Dyspnea, unspecified (principal); R93.89 Abnormal findings on diagnostic imaging of other specified body structures; I10 Essential (primary) hypertension; E78.5 Hyperlipidemia, unspecified; E11.9 Type 2 diabetes mellitus without complications
CPT/HCPCS: 36415; 71045; 80048; 83735; 83880; 84484; 85025; 85610; 93005; 93970; 99284

== ENCOUNTER 2018-12-28 09:13 | Inpatient (IN) | payer BC ==
[2018-12-28] MEDS ORDERED: D50W 25 GM/50 ML SYRINGE IV PRN (11:02)
[2018-12-28] MEDS ORDERED: GLUCAGON 1 MG/VIAL IM PRN (11:02)
[2018-12-28] MEDS: INSULIN -REGULAR HUMAN 50 UNIT/0.5 ML ML SQ SCH ×3 (11:30→20:39)
[2018-12-28 11:41] LABS: Absolute Lymphocytes (CBC) 1.8 K/uL (0.7-4.9); Absolute Monocytes 0.5 K/uL (0.1-1.3); Absolute Neutrophil 4.1 K/uL (1.8-8.0); Basophils % 0.8 % (0-1.3); Eosinophils % 4.4 % (0-4.4); Hematocrit 42.3 % (39.6-49.0); Lymphocytes % 26.9 % (15.3-44.8); MPV 9.3 fL (7.6-11.3); Monocytes % 7.4 % (3.3-12.3); RBC Red Blood Cell Count 4.82 M/uL (4.33-5.43)
[2018-12-28 11:44] LABS: Protime INR 0.96
[2018-12-28 11:58] LABS: ALT/SGPT 53 U/L (12-78); AST/SGOT 32 U/L (15-37); Albumin 3.2 g/dL (3.4-5.0); Alkaline Phosphatase 91 U/L (45-117); BUN Blood Urea Nitrogen 12 mg/dL (7-18); Bicarbonate 27 mmol/L (21-32); Bilirubin Total 0.4 mg/dL (0.2-1.0); Glucose Level 171 mg/dL (74-106); HDL Cholesterol 49 mg/dL (40-60); LDL Cholesterol, Calculated 60 (<130); Potassium 3.8 mmol/L (3.5-5.1); Protein, Total 6.8 g/dL (6.4-8.2); Sodium Level 138 mmol/L (136-145)
[2018-12-28 12:20] LABS: Arterial Blood Carboxyhemoglob 1.6 % (0-1.5); Blood Gas Oxyhemoglobin 94.8 % (94-97)
[2018-12-28] MEDS ORDERED: POTASSIUM CL SA 10 MEQ TAB PO ONE (13:18)
[2018-12-28] MEDS: APIXABAN 5 MG TABLET PO SCH ×2 (13:50→20:40)
--- NOTE | 2018-12-28 16:44 | EKG ---
Test Date: 2018-12-28 Test Time: 12:03:07 Buckle Strap Drum Operator: MAHSA MEASUREMENT RESULTS: Intervals: Rate: 77 WV: 164 QRSD: 88 QT: 402 QTc: 454 [place]: P: 51 WV: 164 QRS: 57 T: 29 INTERPRETIVE STATEMENTS: Normal sinus rhythm Normal ECG Compared to ECG 12/27/2018 12:23:59 No significant changes Electronically Signed On 12-28-18 16:42:41 CDT by Pavel Aquino
--- NOTE | 2018-12-28 17:07 | ECHO ---
HEIGHT: 5 ft 11 in WEIGHT: 400 lb 0 oz DATE OF STUDY: 12/28/[address]: Tanvi Haddad MD 2-DIMENSIONAL: YES M.MODE: YES DOPPLER: YES COLOR FLOW: YES TDS: PORTABLE: DEFINITY: BUBBLE STUDY: DIAGNOSIS: MULTIPLE PE CARDIAC HISTORY: CATHERIZATION: NO SURGERY: NO PROSTHETIC VALVE: NO PACEMAKER: NO MEASUREMENTS (cm) DIASTOLIC (NORMALS) SYSTOLIC (NORMALS) IVSd 1.2 (0.6-1.2) LVIDs 3.1 (2.0-3.5) LVEF 69% LVIDd 5.0 (3.5-5.7) %FS 39% LVPWd 1.2 (0.6-1.2) Ao Diam 2.9 (2.0-3.7) 2 DIMENSIONAL ASSESSMENT: RIGHT ATRIUM: NORMAL LEFT ATRIUM: NORMAL RIGHT VENTRICLE: NORMAL LEFT VENTRICLE: NORMAL TRICUSPID VALVE: NORMAL MITRAL VALVE: NORMAL PULMONIC VALVE: NORMAL AORTIC VALVE: NORMAL PERICARDIAL EFFUSION: NONE AORTIC ROOT: NORMAL LEFT VENTRICULAR WALL MOTION: NORMAL DOPPLER/COLOR FLOW: COMMENTS: NORMAL TWO DIMENSIONAL ECHOCARDIOGRAM WITH DOPPLER. NO PULMONARY HYPERTENSION. NO EFFUSION. NO THROMBUS. TECHNOLOGIST: CASSIUS MORGAN
--- NOTE | 2018-12-28 18:26 | P.HP ---
Certification for Inpatient Patient admitted to: Inpatient With expected LOS: >2 Midnights Patient will require the following post-hospital care: None Practitioner: I am a practitioner with admitting privileges, knowledge of patient current condition, hospital course, and medical plan of care. Services: Services provided to patient in accordance with Admission requirements found in Title 42 Section 412.3 of the Code of Federal Regulations Patient History Date of Service: 12/28/18 Reason for admission: Multiple PE History of Present Illness: This is a 43 yr old male with HTN, HLD and DM2 who is now Directly admitted to the hospital after he was found to have Multiple filling defects on VQ scan concluding High Risk for PE. Pt presented to the ER yesterday with chief complaint of Shortness of breath. Per patient, he had surgery in mid November for drainage and washout of infection in groin, was in hospital for a week and went home on IV antibiotics through a PICC line. He was seen by Dr. Graf about 1.5 weeks ago and had an echo done that showed thickened wall of heart and cardiomegaly. He had a resting HR of 115 at that time so he was started on Bystolic. Pateint states the SOB has improved since last week but still gets worse with exertion. He also had a CXR done 1 week ago which noted some abnormal mediastinal fat vs lymph nodes and he was recommended to get a CT chest with IV contrast. He had CT chest with IV contrast done yesterday at [facility] and was told to come to ER for possible PE. Patient was evaluated in the ER yesterday and had ultrasound of bilateral lower extremity which was negative for DVT. He was hemodynamically stable along with lab work which was within normal limits as well. Patient was discharged home and was asked to get a V/Q scan this morning. V/Q scan results were not positive for multi filling defects high risk for PE and thus patient was admitted for further care. Allergies No Known Allergies Allergy (Unverified 12/28/18 10:01) Home Medications: Esomeprazole Mag Trihydrate [Nexium] 40 mg PO DAILY 11/19/18 Losartan/Hydrochlorothiazide [Losartan-Hctz 100-25 mg Tab] 1 tab PO DAILY Lovastatin 20 mg PO BEDTIME 11/19/18 Metformin HCl [Metformin HCl ER] 1,000 mg PO BID 11/19/18 Albuterol Sulfate [Ventolin Hfa] 2 puff IH Q4HP PRN 12/28/18 Amoxicillin/Potassium Clav [Amox-Clav 875-125 mg Tablet] 1 tab PO BID 12/28/18 Nebivolol HCl [Bystolic] 5 mg PO DAILY 12/28/18 - Past Medical/Surgical History Has patient received pneumonia vaccine in the past: No Diabetic: Yes -: Hypertension -: Hyperlipidemia -: Non-insulin dependent diabetes mellitus type 2 -: removal of cyst to groin - Family History Father -: Hypertension, Diabetes - Social History Smoking Status: Never smoker Alcohol use: No CD- Drugs: No Caffeine use: No Place of Residence: Home Review of Systems 10-point ROS is otherwise unremarkable Physical Examination - Vital Signs Temperature: 98.5 F Blood Pressure: 123/59 Pulse: 84 Respirations: 20 Pulse Ox (%): 94 - Physical Exam General: Alert, In no apparent distress Respiratory: Clear to auscultation bilaterally, Normal air movement Cardiovascular: Regular rate/rhythm, Normal S1 S2 Gastrointestinal: Normal bowel sounds, No tenderness Musculoskeletal: No tenderness Integumentary: No rashes Neurological: Normal gait, Normal speech, Normal strength at 5/5 x4 extr, Normal tone, Normal affect Lymphatics: No axilla or inguinal lymphadenopathy - Studies Laboratory Data (last 24 hrs) 12/28/18 11:25: Sodium 138, Potassium 3.8, BUN 12, Creatinine 0.82, Glucose 171 H, Total Bilirubin 0.4, AST 32, ALT 53, Alkaline Phosphatase 91, Triglycerides 128, Cholesterol 135, HDL Cholesterol 49, Cholesterol/HDL Ratio 2.76 12/28/18 11:25: PT 11.3, INR 0.96, APTT 26.8 12/28/18 11:25: WBC 6.8, Hgb 14.0, Hct 42.3, Plt Count 226 12/28/18 11:25: Troponin I < 0.02 Assessment and Plan - Problems (Diagnosis) (1) Multiple pulmonary emboli Current Visit: Yes Status: Acute Plan: Multiple pulmonary embolism most likely secondary to PICC line versus chronic comorbidities such as obesity, decreased motility after surgery for surgery itself -patient's x-ray with mediastinal fat versus lymph node enlargement recommended CT chest with contrast -CT chest with contrast consistent with PE versus artifact -V/Q scan this morning consistent with multiple filling defects with high risk for multiple PE -bilateral lower extremity ultrasound negative for DVT -patient started on p.o. Eliquis today for anti coagulation -patient will need to be monitored here in the hospital for initiation of anti coagulation, and multiple PEs. -Patient also will need to get coagulopathic workup done and also get an echocardiogram to evaluate his cardiomegaly verses right-sided heart strain. -will monitor patient closely here in the hospital. 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 (3) Hyperlipidemia Current Visit: No Status: Chronic Plan: Stable at this time will restart home medication Qualifiers: Hyperlipidemia type: mixed hyperlipidemia Qualified Code(s): E78.2 - Mixed hyperlipidemia (4) Hypertension Current Visit: No Status: Chronic Plan: Stable at this time will restart home medication Qualifiers: Hypertension type: essential hypertension (5) Morbid obesity with BMI of 50.0-59.9, adult Current Visit: No Status: Chronic Plan: Educated extensively on diet and exercise and serous complications due to increased BMI - Plan Admit patient to medical-surgical floor for treatment of his multiple pulmonary embolism and close monitoring Discharge Plan: Home Plan to discharge in: 48 Hours - Advance Directives Does patient have a Living Will: No Does patient have a Durable POA for Healthcare: No - Code Status/Comfort Care Code Status Assessed: Yes Critical Care: No
[2018-12-28] MEDS ORDERED: ATORVASTATIN 10 MG TAB PO SCH (21:00)
[2018-12-28 22:18] LABS: Urine Appearance CLEAR; Urine Bilirubin NEGATIVE (NEG); Urine Blood NEGATIVE (NEG); Urine Color YELLOW; Urine Glucose 3+ (NEG); Urine Microscopic Reflex NO UMIC; Urine Protein NEGATIVE (NEG); Urine Specific Gravity >=1.030 (1.005-1.030); Urine Urobilinogen 0.2 mg/dL (0.2-1.0); Urine pH 5.5 (5.0-7.0)
[2018-12-29 06:08] LABS: ALT/SGPT 52 U/L (12-78); AST/SGOT 30 U/L (15-37); Absolute Monocytes 0.6 K/uL (0.1-1.3); Albumin 2.9 g/dL (3.4-5.0); Alkaline Phosphatase 90 U/L (45-117); BUN Blood Urea Nitrogen 13 mg/dL (7-18); Basophils % 0.7 % (0-1.3); Bicarbonate 26 mmol/L (21-32); Bilirubin Total 0.3 mg/dL (0.2-1.0); Eosinophils % 5.5 % (0-4.4); Glucose Level 186 mg/dL (74-106); Hematocrit 41.5 % (39.6-49.0); Lymphocytes % 28.6 % (15.3-44.8); MPV 9.4 fL (7.6-11.3); Monocytes % 8.3 % (3.3-12.3); Potassium 4.2 mmol/L (3.5-5.1); Protein, Total 6.3 g/dL (6.4-8.2); RBC Red Blood Cell Count 4.75 M/uL (4.33-5.43); Sodium Level 140 mmol/L (136-145)
[2018-12-29] MEDS: INSULIN -REGULAR HUMAN 50 UNIT/0.5 ML ML SQ SCH ×2 (07:30→12:05)
[2018-12-29] MEDS: APIXABAN 5 MG TABLET PO SCH (08:18)
[2018-12-29] MEDS ORDERED: LOSARTAN/HCTZ 50-12.5 PO SCH (09:00)
[2018-12-29] MEDS ORDERED: PANTOPRAZOLE 40MG TABLET PO SCH (09:00)
--- NOTE | 2018-12-29 13:05 | P.DS ---
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 Pt presented to the ER yesterday with chief complaint of Shortness of breath. Per patient, he had surgery in mid November for drainage and washout of infection in groin, was in hospital for a week and went home on IV antibiotics through a PICC line. He was seen by Dr. Graf about 1.5 weeks ago and had an echo done that showed thickened wall of heart and cardiomegaly. He had a resting HR of 115 at that time so he was started on Bystolic. Pateint states the SOB has improved since last week but still gets worse with exertion. He also had a CXR done 1 week ago which noted some abnormal mediastinal fat vs lymph nodes and he was recommended to get a CT chest with IV contrast. He had CT chest with IV contrast done yesterday at [facility] and was told to come to ER for possible PE. Patient was evaluated in the ER yesterday and had ultrasound of bilateral lower extremity which was negative for DVT. He was hemodynamically stable along with lab work which was within normal limits as well. Patient was discharged home and was asked to get a V/Q scan this morning. Hospital Course: V/Q scan results were now positive for multi filling defects high risk for PE and thus patient was admitted for further care. Initial workup blood work was done. Echocardiogram was done to evaluate for right heart strain, which was normal. ABGs were also done which were normal. He otherwise remained widely stable and his labs remained stable. He was started on Eliquis. His symptoms remained stable, and he was then cleared for discharge. He was discharged on Eliquis 10 mg twice a day for 7 days total then converted to 5 mg twice a day thereafter. He was instructed to follow up with his primary care physician in 2 -3 days in order to follow up with anticoagulation labs that were drawn here. 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 Prior to discharge, he was alert oriented x3, in no acute distress. He was hemodynamically stable. His diagnoses and treatment plan were extensively discussed with him and family. All questions were answered and they verbalized understanding. He was then discharged home a safe and stable manner. Vital Signs/Physical Exam: Temp Pulse Resp BP Pulse Ox 97.0 F 85 20 132/76 99 12/29/18 12:00 12/29/18 12:00 12/29/18 12:00 12/29/18 12:00 12/29/18 12:00 General: Alert, In no apparent distress, Oriented x3, Obese HEENT: Atraumatic, PERRLA, EOMI Neck: Supple, JVD not distended Respiratory: Clear to auscultation bilaterally, Normal air movement Cardiovascular: Regular rate/rhythm, Normal S1 S2 Gastrointestinal: Normal bowel sounds, No tenderness Musculoskeletal: No tenderness Integumentary: No rashes Neurological: Normal speech, Normal tone, Normal affect Lymphatics: No axilla or inguinal lymphadenopathy Laboratory Data at Discharge: WBC 6.9 K/uL (4.3-10.9) 12/29/18 05:18 Hgb 13.4 g/dL (13.6-17.9) L 12/29/18 05:18 Hct 41.5 % (39.6-49.0) 12/29/18 05:18 Plt Count 216 K/uL (152-406) 12/29/18 05:18 PT 11.3 SECONDS (9.5-12.5) 12/28/18 11:25 INR 0.96 12/28/18 11:25 APTT 26.8 SECONDS (24.3-36.9) 12/28/18 11:25 Sodium 140 mmol/L (136-145) 12/29/18 05:18 Potassium 4.2 mmol/L (3.5-5.1) 12/29/18 05:18 BUN 13 mg/dL (7-18) 12/29/18 05:18 Creatinine 0.81 mg/dL (0.55-1.3) 12/29/18 05:18 Glucose 186 mg/dL (74-106) H 12/29/18 05:18 Total Bilirubin 0.3 mg/dL (0.2-1.0) 12/29/18 05:18 AST 30 U/L (15-37) 12/29/18 05:18 ALT 52 U/L (12-78) 12/29/18 05:18 Alkaline Phosphatase 90 U/L (45-117) 12/29/18 05:18 Troponin I < 0.02 ng/mL (0.0-0.045) 12/28/18 11:25 Triglycerides 128 mg/dL (<150) 12/28/18 11:25 Cholesterol 135 mg/dL (<200) 12/28/18 11:25 HDL Cholesterol 49 mg/dL (40-60) 12/28/18 11:25 Cholesterol/HDL Ratio 2.76 12/28/18 11:25 Home Medications: Esomeprazole Mag Trihydrate [Nexium] 40 mg PO DAILY 11/19/18 Losartan/Hydrochlorothiazide [Losartan-Hctz 100-25 mg Tab] 1 tab PO DAILY Lovastatin 20 mg PO BEDTIME 11/19/18 Metformin HCl [Metformin HCl ER] 1,000 mg PO BID 11/19/18 Albuterol Sulfate [Ventolin Hfa] 2 puff IH Q4HP PRN 12/28/18 Amoxicillin/Potassium Clav [Amox-Clav 875-125 mg Tablet] 1 tab PO BID 12/28/18 Nebivolol HCl [Bystolic*] 5 mg PO DAILY 12/28/18 Apixaban [Eliquis] 5 mg PO BID #60 tablet 12/29/18 New Medications: Apixaban [Eliquis] 5 mg PO BID #60 tablet Patient Discharge Instructions: Please follow up with your primary care physician in 2-3 days. New medication: Eliquis (blood thinner). Please return to the Emergency room for worsening symptoms. Diet: AHA Activity: Ad annamarie Followup: Diann Bateman NP [Primary Care Provider] - (call to schedule appointment) Time spent managing pt's care (in minutes): 55
[2019-01-02 11:02] LABS: Protein C Antigen 119 % (70-140)
== END 2018-12-29 12:51 | disposition home or self-care (01) | DRG 176 ==
LOC: 4TH 09:38
PROVIDERS: ADMIT Family Medicine; ATTEND Family Medicine
DX: I26.99 Other pulmonary embolism without acute cor pulmonale (principal); Z68.43 Body mass index [BMI] 50.0-59.9, adult; E66.01 Morbid (severe) obesity due to excess calories; E11.9 Type 2 diabetes mellitus without complications; E78.5 Hyperlipidemia, unspecified; I10 Essential (primary) hypertension; Z79.84 Long term (current) use of oral hypoglycemic drugs
CPT/HCPCS: 36415; 78582; 80053; 80061; 81003; 81241; 82805; 82962; 83880; 84484; 85025; 85302; 85305; 85306; 85610; 85730; 93005; 93306; 94760; A9540; A9558

== ENCOUNTER 2024-01-26 06:46 | Emergency (ER) | payer OTHER ==
[2024-01-26 08:13] LABS: Absolute Eosinophils 0.1 K/uL (0-0.5); Absolute Lymphocytes (CBC) 0.8 K/uL (0.7-4.9); Absolute Monocytes 0.6 K/uL (0.1-1.3); Basophils % 0.4 % (0-1.3); Eosinophils % 1.3 % (0-4.4); Hematocrit 47.5 % (39.6-49.0); Hemoglobin 15.3 g/dL (13.6-17.9); Lymphocytes % 9.7 % (15.3-44.8); MCHC 32.3 g/dL (32.0-36.0); MCV 90.1 fL (80-100); MPV 8.4 fL (7.6-11.3); Monocytes % 7.1 % (3.3-12.3); Neutrophils % 81.5 % (41.7-73.7); Platelets 221 thou/uL (152-406); RBC Red Blood Cell Count 5.27 M/uL (4.33-5.43); Red Cell Distribution Width 15.2 % (12.1-15.2)
[2024-01-26 08:19] LABS: Specific Gravity 1.026 (1.005-1.030); Sqamous Epithelial <5 /HPF (None Seen); Urine Bacteria None Seen /HPF (<20); Urine Bilirubin NEGATIVE (Negative); Urine Blood 3+ (OVER) (Negative); Urine Clarity Extremely Turbid (Clear); Urine Color Yellow (Yellow); Urine Culture Reflex Order NOT NEEDED; Urine Glucose NEGATIVE (Negative); Urine Ketones NEGATIVE (Negative); Urine Microscopic Reflex YN ORDER UMIC; Urine Mucus 1+ /HPF (None Seen); Urine Nitrite NEGATIVE (Negative); Urine Protein TRACE (Negative); Urine RBC >50 /HPF (None Seen); Urine Urobilinogen Normal (Normal); Urine WBC <5 /HPF (<5); Urine Yeast (Budding) Few /HPF (None Seen); Urine pH 6.5 (5.0-7.0)
[2024-01-26 08:27] LABS: Albumin 3.4 g/dL (3.4-5.0); Anion Gap 6.1 mEq/L (5.0-15.0); Bilirubin Total 0.4 mg/dL (0.2-1.0); Globulin 3.3 g/dL (2.3-3.5); Potassium 4.1 mEq/L (3.5-5.1); Protein, Total 6.7 g/dL (6.4-8.2)
--- NOTE | 2024-01-26 09:15 | RAD REPORT ---
EXAM DESCRIPTION: CT - Abdomen Pelvis Wo Contrast - 01/26/2024 8:09 am CLINICAL HISTORY: R flank pain COMPARISON: Chest Single View dated 01/25/2024; Chest Single View dated 11/09/2023; Chest Single View d ated 08/28/2023; Chest Single View dated 08/28/2023bdomen Pelvis W Contrast dated 11/19/2018 TECHNIQUE: Thin cut axial CT imaging of the abdomen and pelvis was performed without IV contrast. Mu ltiplanar reformats were generated and reviewed. All CT scans are performed using dose optimization technique as appropriate and may include automated exposure control or mA/KV adjustment according to patient size. FINDINGS: No suspicious findings in the lung bases. The liver, spleen, adrenal and pancreas show no suspicious findings. Gallbladder and biliary tree are also without suspicious finding. Symmetric renal contour, without suspicious parenchymal findings within limits of noncontrast techniq ue. No evidence of hydroureteronephrosis. Punctate bilateral nonobstructing renal calculi not exceedi ng 2 mm. No dilated bowel loops or bowel wall thickening. No free air, free fluid or inflammatory stranding. N o hernia, mass or bulky lymphadenopathy. The urinary bladder is decompressed limiting evaluation. No suspicious bony findings. IMPRESSION: No acute intra-abdominal process. Nonobstructing tiny bilateral renal calculi.
--- NOTE | 2024-01-26 09:23 | EDPHYS ---
Physician Documentation [facility] Name: Albert Leach Age: 49 yrs Sex: Male : 1975 Arrival Date: 01/26/2024 Time: 06:46 Bed 13 Private MD: ED Physician Anibal Moore HPI: 01/25 08:06 This 49 yrs old Male presents to ER via Ambulatory with complaints of Flank Pain. rt 08:06 Patient presents to the ED with a severe right-sided flank pain rating to the right rt lower quadrant starting about an hour prior to arrival. Patient reports nausea without vomiting. Denies other acute complaints. Patient states that as he arrived in the parking lot, pain is completely resolved, denies any symptoms currently. No reported aggravating or alleviating factors.. Historical: - Allergies: 07:15 No Known Allergies; hb - Home Meds: 07:15 Vyvanse 60 mg oral capsule every morning [Active]; hb - PMHx: 07:15 Diabetes - NIDDM; Hyperlipidemia; Hypertension; hb - PSHx: 07:15 Gastric Bypass (Hypertension); hb - Immunization history:: Adult Immunizations up to date. - Infectious Disease History:: Denies. - Social history:: Smoking status: Patient reports use of chewing tobacco. - Family history:: not pertinent. ROS: 08:06 Constitutional: Negative for fever, chills, and weight loss, Cardiovascular: Negative rt for chest pain, palpitations, and edema, Respiratory: Negative for shortness of breath, cough, wheezing, and pleuritic chest pain, MS/Extremity: Negative for injury and deformity, Skin: Negative for injury, rash, and discoloration, 08:06 Abdomen/GI: Positive for abdominal pain, nausea, 08:06 Back: Positive for flank pain, Negative for injury or acute deformity, Exam: 08:06 Constitutional: This is a well developed, well nourished patient who is awake, alert, rt and in no acute distress. Head/Face: Normocephalic, atraumatic. Chest/axilla: Normal chest wall appearance and motion. Nontender with no deformity. No lesions are appreciated. Cardiovascular: Regular rate and rhythm with a normal S1 and S2. No gallops, murmurs, or rubs. Normal PMI, no JVD. No pulse deficits. Respiratory: Lungs have equal breath sounds bilaterally, clear to auscultation and percussion. No rales, rhonchi or wheezes noted. No increased work of breathing, no retractions or nasal flaring. Abdomen/GI: Soft, non-tender, with normal bowel sounds. No distension or tympany. No guarding or rebound. No evidence of tenderness throughout. Back: No spinal tenderness. No costovertebral tenderness. Full range of motion. MS/ Extremity: Pulses equal, no cyanosis. Neurovascular intact. Full, normal range of motion. Neuro: Awake and alert, GCS 15, oriented to person, place, time, and situation. Cranial nerves II-XII grossly intact. Motor strength 5/5 in all extremities. Sensory grossly intact. Cerebellar exam normal. Normal gait. Vital Signs: 07:02 BP 147 / 84; Pulse 74; Resp 16; Temp 97.7(O); Pulse Ox 100% on R/A; Weight 127.01 kg; hb Height 5 ft. 11 in. ; Pain 0/10; 08:41 BP 131 / 78; Pulse 73; Resp 18 S; Pulse Ox 100% on R/A; kc6 07:02 Body Mass Index 39.05 (127.01 kg, 180.34 cm) hb 07:02 Pain Scale: Adult hb MDM: 07:45 Patient medically screened. rt 09:31 Differential diagnosis: Ureterolithiasis, passed kidney stone, pyelonephritis. Data rt reviewed: vital signs, nurses notes, lab test result(s), radiologic studies. Independent interpretation of the following test(s) in the Emergency Department CT Scan: My interpretation is No ureteral stone seen on my interpretation of CT scan images. Care significantly affected by the following chronic conditions: Diabetes. Counseling: I had a detailed discussion with the patient and/or guardian regarding the historical points, exam findings, and any diagnostic results supporting the discharge/admit diagnosis, lab results, radiology results, the need for outpatient follow up, to return to the emergency department if symptoms worsen or persist or if there are any questions or concerns that arise at home. Response to treatment: the patient's symptoms have resolved after treatment. 01/25 07:53 Order name: CBC with Diff; Complete Time: 08:27 rt 01/25 07:53 Order name: CMP; Complete Time: 08: rt 01/25 07:53 Order name: Lipase; Complete Time: 08:27 rt 01/25 07:53 Order name: Urinalysis w/ reflexes; Complete Time: 08:27 rt 01/25 07:53 Order name: CT Abd/Pelvis - Without Contrast; Complete Time: 09:16 rt 01/25 07:53 Order name: IV Saline Lock; Complete Time: 08:02 rt 01/25 07:53 Order name: Labs collected and sent; Complete Time: 08:02 rt Administered Medications: No medications were administered Disposition Summary: 01/26/24 09:22 Discharge Ordered Notes: Location: Home rt Problem: new rt Symptoms: are resolved rt Condition: Stable rt Diagnosis - Calculus of ureter rt Followup: rt - With: Private Physician - When: 2 - 3 days - Reason: Discharge Instructions: - Discharge Summary Sheet rt - Kidney Stones rt Forms: - Medication Reconciliation Form rt - Antibiotic Education rt - Prescription Opioid Use rt - Patient Portal Instructions rt - Leadership Thank You Letter rt Signatures: Dispatcher [employer] Cecelia Sargent RN RN Anibal Moore MD MD rt Corrections: (The following items were deleted from the chart) 07:53 07:53 CBC+H.LAB.BRZ ordered. EDMS EDMS 07:53 07:53 COMPREHENSIVE METABOLIC PANEL+C.LAB.BRZ ordered. EDMS EDMS 07:53 07:53 LIPASE+C.LAB.BRZ ordered. EDMS EDMS 07:53 07:53 Urinalysis+U.LAB.BRZ ordered. EDMS EDMS
--- NOTE | 2024-01-26 09:23 | ER ---
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 Coronavirus screen: At this time, the client does not indicate any symptoms associated with coronavirus-19. Ebola Screen: No symptoms or risks identified at this time. Initial Sepsis Screen: Does the patient meet any 2 criteria? No. Patient's initial sepsis screen is negative. Does the patient have a suspected source of infection? No. Patient's initial sepsis screen is negative. Risk Assessment: Do you want to hurt yourself or someone else? Patient reports no desire to harm self or others. Onset of symptoms was January 26, 2024. 07:02 Method Of Arrival: Ambulatory hb 07:02 Acuity: LITA 3 hb Triage Assessment: 07:16 General: Appears in no apparent distress. Behavior is calm, cooperative. Pain: Pain hb currently is 0 out of 10 on a pain scale. at worst was 8 out of 10 on a pain scale. Neuro: Level of Consciousness is awake, alert, obeys commands, Oriented to person, place, time, situation. Cardiovascular: Patient's skin is warm and dry. Respiratory: Respiratory effort is even, unlabored, Respiratory pattern is regular, symmetrical. GI: Reports nausea. GI: right flank pain. Historical: - Allergies: 07:15 No Known Allergies; hb - Home Meds: 07:15 Vyvanse 60 mg oral capsule every morning [Active]; hb - PMHx: 07:15 Diabetes - NIDDM; Hyperlipidemia; Hypertension; hb - PSHx: 07:15 Gastric Bypass (Hypertension); hb - Immunization history:: Adult Immunizations up to date. - Infectious Disease History:: Denies. - Social history:: Smoking status: Patient reports use of chewing tobacco. - Family history:: not pertinent. Screenin:50 [facility] ED Fall Risk Assessment (Adult) History of falling in the last 3 months, kc6 including since admission No falls in past 3 months (0 pts) Confusion or Disorientation No (0 pts) Intoxicated or Sedated No (0 pts) Impaired Gait No (0 pts) Mobility Assist Device Used No (0 pt) Altered Elimination No (0 pt) Score/Fall Risk Level 0 - 2 = Low Risk. Abuse screen: Denies threats or abuse. Denies injuries from another. Nutritional screening: No deficits noted. Tuberculosis screening: No symptoms or risk factors identified. Assessment: 07:48 General: See triage assessment. hb 08:36 Reassessment: Patient appears in no apparent distress at this time. Patient and/or hb family updated on plan of care and expected duration. Pain level reassessed. Patient is alert, oriented x 3, equal unlabored respirations, skin warm/dry/pink. 08:41 Reassessment: Patient appears in no apparent distress at this time. No changes from kc6 previously documented assessment. Patient and/or family updated on plan of care and expected duration. Pain level reassessed. Patient is alert, oriented x 3, equal unlabored respirations, skin warm/dry/pink. Patient states feeling better. Patient states symptoms have improved. Vital Signs: 07:02 BP 147 / 84; Pulse 74; Resp 16; Temp 97.7(O); Pulse Ox 100% on R/A; Weight 127.01 kg; hb Height 5 ft. 11 in. ; Pain 0/10; 08:41 BP 131 / 78; Pulse 73; Resp 18 S; Pulse Ox 100% on R/A; kc6 07:02 Body Mass Index 39.05 (127.01 kg, 180.34 cm) hb 07:02 Pain Scale: Adult ED Course: 06:49 Patient arrived in ED. jj6 06:58 Anibal Moore MD is Attending Physician. rt 07:15 Triage completed. hb 07:16 Arm band placed on. hb 07:48 Provided Education on: tests, result times, use of call light, bathroom location. hb 07:48 No provider procedures requiring assistance completed. hb 07:49 Kailee Geiger RN is Primary Nurse. kc6 07:50 Patient has correct armband on for positive identification. Bed in low position. Call kc6 light in reach. Side rails up X 1. Adult w/ patient. Pulse ox on. NIBP on. Warm blanket given. Pillow given. 08:[address] via wheelchair. hb 08:02 Urinalysis w/ reflexes Sent. hb 08:10 CT Abd/Pelvis - Without Contrast In Process Unspecified. EDMS 08:10 Urine collected: clean catch specimen, clear. Inserted saline lock: 20 gauge in right kc6 antecubital area, using aseptic technique. Blood collected. 08:13 Patient moved back from CT. hb 09:34 IV discontinued, intact, bleeding controlled, No redness/swelling at site. Pressure kc6 dressing applied. Administered Medications: No medications were administered Medication: 07:48 VIS not applicable for this client. hb Outcome: 09:22 Discharge ordered by . rt 09:34 Discharged to home ambulatory, with significant other, [facility] 09:34 Condition: improved 09:34 Discharge instructions given to patient, Instructed on discharge instructions, follow up and referral plans. Demonstrated understanding of instructions, follow-up care, 09:34 Patient left the ED. kc6 Signatures: Dispatcher [employer] EDMS Cecelia Krishnan RN RN Bee [id number] Kailee Geiger RN RN kc Anibal Moore MD MD rt
[2024-01-26 09:38] VITALS: TEMP 97.7; O2SAT 100
[2024-01-26 09:53] VITALS: BP 131/78
== END 2024-01-26 09:34 | disposition home or self-care (01) ==
LOC: ER 06:46
DX: N20.1 Calculus of ureter (principal); E11.9 Type 2 diabetes mellitus without complications; I10 Essential (primary) hypertension; E78.5 Hyperlipidemia, unspecified; F17.220 Nicotine dependence, chewing tobacco, uncomplicated; Z98.84 Bariatric surgery status
CPT/HCPCS: 36415; 74176; 80053; 81001; 83690; 85025; 99284

== ENCOUNTER 2024-03-05 06:36 | Observation (INO) | payer OTHER ==
[2024-03-05] MEDS ORDERED: ACETAMINOPHEN 500 MG TAB ONE (07:09)
[2024-03-05] MEDS ORDERED: SMZ./TMP. 800/160 MG TABLET ONE (07:09)
[2024-03-05] MEDS ORDERED: CEFTRIAXONE 1000 MG/VIAL ONE (07:09)
[2024-03-05] MEDS ORDERED: IBUPROFEN 400 MG TAB ONE (07:10)
--- NOTE | 2024-03-05 07:33 | RAD REPORT ---
EXAM DESCRIPTION: US - Extremity Venous Uni Ltd - 03/05/2024 7:28 am CLINICAL HISTORY: PAIN Leg swelling and edema. COMPARISON: Extrem Venous W Compress Dimitry dated 05/19/2022 FINDINGS: Left lower extremity venous system was interrogated with Doppler technique. Normal flow, c ompressibility and augmentation was noted. There is no DVT present. IMPRESSION: No evidence of left lower extremity deep venous thrombosis.
[2024-03-05 07:41] LABS: Absolute Basophils 0.1 K/uL (0-0.5); Absolute Lymphocytes (CBC) 0.6 K/uL (0.7-4.9); Absolute Monocytes 0.6 K/uL (0.1-1.3); Absolute Neutrophil 11.6 K/uL (1.8-8.0); Basophils % 0.5 % (0-1.3); Eosinophils % 0.3 % (0-4.4); Hematocrit 45.6 % (39.6-49.0); Hemoglobin 14.4 g/dL (13.6-17.9); Lymphocytes % 4.8 % (15.3-44.8); MCH 28.4 pg (27.0-35.0); MCHC 31.5 g/dL (32.0-36.0); MPV 8.3 fL (7.6-11.3); Monocytes % 4.5 % (3.3-12.3); Neutrophils % 89.9 % (41.7-73.7); Platelets 196 thou/uL (152-406); RBC Red Blood Cell Count 5.06 M/uL (4.33-5.43); Red Cell Distribution Width 14.7 % (12.1-15.2)
[2024-03-05 07:57] LABS: Albumin 3.2 g/dL (3.4-5.0); Anion Gap 9.1 mEq/L (5.0-15.0); Globulin 3.3 g/dL (2.3-3.5); Potassium 4.1 mEq/L (3.5-5.1); Protein, Total 6.5 g/dL (6.4-8.2)
[2024-03-05 09:17] LABS: Blood Morphology Comment NOT SEEN (NOT SEEN); Platelet Estimate ADEQ; White Blood Cell Scan OK (OK)
--- NOTE | 2024-03-05 09:46 | EDPHYS ---
Physician Documentation [facility] Name: Albert Leach Age: 49 yrs Sex: Male : 1975 Arrival Date: 03/05/2024 Time: 06:36 Bed 6 Private MD: Les Turner E ED Physician Shi Gonzalez HPI: 03/05 06:47 This 49 yrs old Male presents to ER via Unassigned with complaints of Foot sp4 Pain, Feet Swelling, Fever. 07:04 49-year-old male presents with a moderate left foot with redness swelling and pain sp4 starting yesterday evening.. Historical: - Allergies: 06:52 No Known Allergies; jb4 - PMHx: 06:52 Hyperlipidemia; Diabetes - NIDDM; Hypertension; jb4 - PSHx: 06:52 Gastric Bypass (en); jb4 - Immunization history:: Adult Immunizations up to date. - Infectious Disease History:: Denies. - Social history:: Smoking status: Patient denies any tobacco usage or history of. - Family history:: not pertinent. ROS: 07:12 Constitutional: Negative for fever, chills, and weight loss, positive For left foot sp4 redness pain swelling tenderness 07:12 All other systems are negative, Exam: 07:12 Constitutional: This is a well developed, well nourished patient who is awake, alert, sp4 and in no acute distress. Head/Face: Normocephalic, atraumatic. Eyes: Pupils equal round and reactive to light, extra-ocular motions intact. Lids and lashes normal. Conjunctiva and sclera are not injected. Cornea within normal limits. Periorbital areas with no swelling, redness, or edema. ENT: Nares patent. No nasal discharge, no septal abnormalities noted. Tympanic membranes are normal and external auditory canals are clear. Oropharynx with no redness, swelling, or masses, exudates, or evidence of obstruction, uvula midline. Mucous membranes moist. Neck: Trachea midline, no thyromegaly or masses palpated, and no cervical lymphadenopathy. Supple, full range of motion without nuchal rigidity, or vertebral point tenderness. Chest/axilla: Normal chest wall appearance and motion. Nontender with no deformity. No lesions are appreciated. Cardiovascular: Regular rate and rhythm with a normal S1 and S2. No gallops, murmurs, or rubs. Normal PMI, no JVD. No pulse deficits. Respiratory: Lungs have equal breath sounds bilaterally, clear to auscultation and percussion. No rales, rhonchi or wheezes noted. No increased work of breathing, no retractions or nasal flaring. Abdomen/GI: Soft, with normal bowel sounds. No distension or tympany. No guarding or rebound. No evidence of tenderness throughout. Back: No spinal tenderness. No costovertebral tenderness. Skin: Warm, dry with normal turgor. Normal color with no rashes, no lesions, and no evidence of cellulitis. MS/ Extremity: Pulses equal, no cyanosis. Neurovascular intact. Full, normal range of motion. positive for left foot cellulitic changes including toes Neuro: Awake and alert, GCS 15, oriented to person, place, time, and situation. Cranial nerves II-XII grossly intact. Motor strength 5/5 in all extremities. Sensory grossly intact. Psych: Awake, alert, with orientation to person, place and time. Behavior, mood, and affect are within normal limits Vital Signs: 06:51 BP 126 / 81; Pulse 87; Resp 16; Temp 98.4(O); Pulse Ox 99% on R/A; Weight 131.54 kg jb4 (R); Height 5 ft. 11 in. (R); Pain 3/10; 09:15 BP 115 / 77; Pulse 71; Resp 17; Pulse Ox 99% on R/A; rs5 10:30 BP 120 / 79; Pulse 70; Resp 17; Pulse Ox 99% on R/A; rs5 06:51 Body Mass Index 40.45 (131.54 kg, 180.34 cm) jb4 06:51 Pain Scale: Adult jb4 [place] Coma Score: 06:51 Eye Response: spontaneous(4). Motor Response: obeys commands(6). Verbal Response: bm8 oriented(5). Total: 15. 07:12 Eye Response: spontaneous(4). Motor Response: obeys commands(6). Verbal Response: sp4 oriented(5). Total: 15. MDM: 07:02 Patient medically screened. sp4 07:14 Differential diagnosis: fracture, sprain, arthritis, gout, cellulitis. Data reviewed: sp4 vital signs, nurses notes, lab test result(s), CBC, hepatic panel, radiologic studies, ultrasound. Transition of care: After a detail discussion of the patient's case, care is transferred to Shi Gonzalez MD. 07:15 ED course: In 2021 patient was evaluated by Dr. Pang with ID . sp4 09:44 I considered the following discharge prescriptions or medication management in the sd2 emergency department Medications were administered in the Emergency Department. See MAR. Counseling: I had a detailed discussion with the patient and/or guardian regarding the historical points, exam findings, and any diagnostic results supporting the discharge/admit diagnosis, lab results, radiology results, the need for further work-up and treatment in the hospital. ED course: Discussed results with patient and plan for admission for IV abx as he states ID previously wanted him to have 5 days of IV antibiotics before going on PO linezolid.. 03/05 06:54 Order name: CBC with Diff; Complete Time: 09:18 sp4 03/05 06:54 Order name: CMP; Complete Time: 08:59 sp4 03/05 07:57 Order name: CBC Smear Scan; Complete Time: 09:18 EDMS 03/05 11:20 Order name: Uric Acid; Complete Time: 11:48 EDMS 03/05 15:53 Order name: Procalcitonin; Complete Time: 17:22 EDMS 03/05 06:55 Order name: Extremity Venous Uni Ltd US; Complete Time: 07:45 sp4 03/05 06:54 Order name: IV Saline Lock; Complete Time: 07:36 sp4 03/05 06:54 Order name: Labs collected and sent; Complete Time: 07:36 sp4 Administered Medications: 07:04 Not Given (Physician Discretion): trimethoprim-sulfamethoxazole(160 mg-800 mg (ds) 1 sp4 tablet PO once 07:25 Drug: Ibuprofen PO 800 mg PO once Route: PO; rs5 08:10 Follow up: Response: No adverse reaction rs5 07:25 Drug: Acetaminophen PO 1000 mg PO once Route: PO; rs5 08:10 Follow up: Response: No adverse reaction; Pain is decreased rs5 07:30 Drug: Rocephin - Rocephin (cefTRIAXone) IVPB 1 grams IVPB once over 30 mins; (mix in 50 rs5 mL NS) Route: IVPB; Infused Over: 30 mins; Site: left antecubital; 08:00 Follow up: Response: No adverse reaction rs5 07:30 Drug: Linezolid PO 600 mg PO once Route: PO; rs5 08:10 Follow up: Response: No adverse reaction rs5 Disposition Summary: 03/05/24 09:46 Hospitalization Ordered Notes: Hospitalization Status: Observation sd2 Provider: Armando Carrion2 Condition: Stable sd2 Problem: new sd2 Symptoms: are unchanged sd2 Bed/Room Type: Standard sd2 Location: Telemetry/MedSurg (observation)(03/05/24 15:41) bd Room Assignment: 411(03/05/24 15:41) bd Diagnosis - Cellulitis of left lower limb sd2 Forms: - Medication Reconciliation Form sd2 - SBAR form sd2 - Leadership Thank You Letter sd2 Signatures: Dispatcher [employer] EDPeg Mendoza James, RN RN jb4 Shi Gonzalez MD MD sd2 Josse Lester RN RN rs5 Sergei Li MD MD sp4 Corrections: (The following items were deleted from the chart) 10:52 09:46 Telemetry/MedSurg (observation) sd2 bd 10:52 09:46 sd2 bd 15:41 10:52 [facility] ER HOLD bd bd 15:41 10:52 ERHOLD- bd bd
--- NOTE | 2024-03-05 09:46 | ER ---
Nurse's Notes [facility] Name: Albert Leach Age: 49 yrs Sex: Male : 1975 Arrival Date: 03/05/2024 Time: 06:36 Bed 6 Private MD: Les Turner E Diagnosis: Cellulitis of left lower limb Presentation: 03/05 06:51 Chief complaint: Patient states: I started having swelling in my left foot last night. jb4 I was having chills and it was hot to the touch. Coronavirus screen: At this time, the client does not indicate any symptoms associated with coronavirus-19. Ebola Screen: No symptoms or risks identified at this time. Initial Sepsis Screen: Does the patient meet any 2 criteria? No. Patient's initial sepsis screen is negative. Does the patient have a suspected source of infection? No. Patient's initial sepsis screen is negative. Risk Assessment: Do you want to hurt yourself or someone else? Patient reports no desire to harm self or others. Onset of symptoms was March 05, 2024. Transition of care: patient was not received from another setting of care. 06:51 Method Of Arrival: Ambulatory jb4 06:51 Acuity: LITA 3 jb4 Historical: - Allergies: 06:52 No Known Allergies; jb4 - PMHx: 06:52 Hyperlipidemia; Diabetes - NIDDM; Hypertension; jb4 - PSHx: 06:52 Gastric Bypass (en); jb4 - Immunization history:: Adult Immunizations up to date. - Infectious Disease History:: Denies. - Social history:: Smoking status: Patient denies any tobacco usage or history of. - Family history:: not pertinent. Screenin:51 [facility] ED Fall Risk Assessment (Adult) History of falling in the last 3 months, bm8 including since admission No falls in past 3 months (0 pts) Confusion or Disorientation No (0 pts) Intoxicated or Sedated No (0 pts) Impaired Gait No (0 pts) Mobility Assist Device Used No (0 pt) Altered Elimination No (0 pt) Score/Fall Risk Level 0 - 2 = Low Risk Oriented to surroundings, Maintained a safe environment, Educated pt \T\ family on fall prevention, incl call for assistance when getting out of bed, Hourly rounding (assess needs \T\ fall precautionary measures) done, Used ambulatory aids as needed (educated on \T\ assisted with). Abuse screen: Denies threats or abuse. Nutritional screening: No deficits noted. Tuberculosis screening: No symptoms or risk factors identified. Assessment: 06:51 General: Appears in no apparent distress. uncomfortable, Behavior is calm, cooperative, bm8 appropriate for age. Pain: Complains of pain in left foot Pain radiates to left leg Pain currently is 3 out of 10 on a pain scale. Quality of pain is described as aching, squeezing, Pain began 1 day ago. Neuro: Level of Consciousness is awake, alert, obeys commands, Oriented to person, place, time, situation, Appropriate for age. Cardiovascular: Denies chest pain, Capillary refill < 3 seconds Patient's skin is warm and dry. Respiratory: Airway is patent Respiratory effort is even, unlabored, Respiratory pattern is regular, symmetrical. GI: No signs and/or symptoms were reported involving the gastrointestinal system. : No signs and/or symptoms were reported regarding the genitourinary system. EENT: No signs and/or symptoms were reported regarding the EENT system. Derm: Rash noted that is itchy, red, raised, on left upper thigh Reports swelling to left foot up to ankle. red, warm to touch. Musculoskeletal: No signs and/or symptoms reported regarding the musculoskeletal system. 08:01 Reassessment: Patient and/or family updated on plan of care and expected duration. Pain rs5 level reassessed. Patient is alert, oriented x 3, equal unlabored respirations, skin warm/dry/pink. 09:15 Reassessment: No changes from previously documented assessment. rs5 10:25 Reassessment: Patient and/or family updated on plan of care and expected duration. Pain rs5 level reassessed. Patient is alert, oriented x 3, equal unlabored respirations, skin warm/dry/pink. Vital Signs: 06:51 BP 126 / 81; Pulse 87; Resp 16; Temp 98.4(O); Pulse Ox 99% on R/A; Weight 131.54 kg jb4 (R); Height 5 ft. 11 in. (R); Pain 3/10; 09:15 BP 115 / 77; Pulse 71; Resp 17; Pulse Ox 99% on R/A; rs5 10:30 BP 120 / 79; Pulse 70; Resp 17; Pulse Ox 99% on R/A; rs5 06:51 Body Mass Index 40.45 (131.54 kg, 180.34 cm) jb4 06:51 Pain Scale: Adult jb4 [place] Coma Score: 06:51 Eye Response: spontaneous(4). Motor Response: obeys commands(6). Verbal Response: bm8 oriented(5). Total: 15. 07:12 Eye Response: spontaneous(4). Motor Response: obeys commands(6). Verbal Response: sp4 oriented(5). Total: 15. ED Course: 06:40 Patient arrived in ED. gm2 06:41 Vinny Sanchez MD is Private Physician. gm2 06:41 Les Turner MD is Private Physician. gm2 06:46 Sergei Li MD is Attending Physician. sp4 06:46 Derek Horowitz, RN is Primary Nurse. bm8 06:51 Patient has correct armband on for positive identification. Bed in low position. Call bm8 light in reach. Side rails up X 1. Adult w/ patient. Client placed on continuous cardiac and pulse oximetry monitoring. NIBP monitoring applied. Pulse ox on. NIBP on. Door closed. Noise minimized. Verbal reassurance given. Head of bed elevated. 06:51 No provider procedures requiring assistance completed. bm8 06:52 Triage completed. jb4 06:52 Arm band placed on right wrist. jb4 07:03 Primary Nurse role handed off by Derek Horowitz, RN bm8 07:03 Report given to char Loaiza. bm8 07:05 Josse Lester, RN is Primary Nurse. rs5 07:30 Extremity Venous Uni Ltd US In Process Unspecified. EDMS 07:45 Attending Physician role handed off by Sergei Li MD sd2 07:45 Shi Gonzalez MD is Attending Physician. sd2 08:55 Inserted saline lock: 22 gauge in left antecubital area, using aseptic technique. Blood rs5 collected. Flushed with 10 mL NS. 09:46 Armando Carrion MD is Hospitalizing Provider. sd2 10:30 IV discontinued, intact, bleeding controlled, No redness/swelling at site. Pressure rs5 dressing applied. Administered Medications: 07:04 Not Given (Physician Discretion): trimethoprim-sulfamethoxazole(160 mg-800 mg (ds) 1 sp4 tablet PO once 07:25 Drug: Ibuprofen PO 800 mg PO once Route: PO; rs5 08:10 Follow up: Response: No adverse reaction rs5 07:25 Drug: Acetaminophen PO 1000 mg PO once Route: PO; rs5 08:10 Follow up: Response: No adverse reaction; Pain is decreased rs5 07:30 Drug: Rocephin - Rocephin (cefTRIAXone) IVPB 1 grams IVPB once over 30 mins; (mix in 50 rs5 mL NS) Route: IVPB; Infused Over: 30 mins; Site: left antecubital; 08:00 Follow up: Response: No adverse reaction rs5 07:30 Drug: Linezolid PO 600 mg PO once Route: PO; rs5 08:10 Follow up: Response: No adverse reaction rs5 Medication: 06:51 VIS not applicable for this client. bm8 Outcome: 09:46 Decision to Hospitalize by Provider. sd2 10:30 Admitted to ER Hold. Please see [facility] for further documentation. rs5 10:30 Condition: stable rs5 10:30 Instructed on the need for admit, Demonstrated understanding of instructions, 17:32 Patient left the ED. ph Signatures: Dispatcher [employer] EDErika Davidson RN RN Konrad Gonsalez RN RN jb4 Shi Gonzalez MD MD sd2 Josse Lester RN RN rs5 Sergei Li MD MD sp4 Jaida Schneider 2 Derek Horowitz RN RN bm8
[2024-03-05] MEDS: LINEZOLID 600 MG TAB PO ONE (10:00)
--- NOTE | 2024-03-05 10:14 | P.HP ---
Certification for Inpatient Patient admitted to: Observation With expected LOS: <2 Midnights Patient will require the following post-hospital care: None Practitioner: I am a practitioner with admitting privileges, knowledge of patient current condition, hospital course, and medical plan of care. Services: Services provided to patient in accordance with Admission requirements found in Title 42 Section 412.3 of the Code of Federal Regulations <Alyssa Marquez - Last Filed: 03/05/24 14:31> Patient History Date of Service: 03/05/24 Reason for admission: Cellulitis History of Present Illness: Mr. Leach is a 49-year-old with a past medical history of hypertension and hyperlipidemia secondary to obesity. He is status post gastric bypass. He takes Adderall but otherwise does not need medications for previous comorbidities secondary to weight loss per report. He has had a rapid onset of cellulitis in the past (three years ago) of his left lower extremity that was sensitive to Zyvox. He states yesterday after work he noted some left thigh pain, took his boots off, and noted his left foot was a bit swollen. By later in the evening, his left dorsal foot and left lateral malleolus were erythematous, warm to the touch, and more edematous. He states at that time it began throbbing. As his previous cellulitis was rapid in onset and seemingly only sensitive to Zyvox he presented to the emergency department this morning. Ultrasound studies in the emergency department were negative for DVT. He received Zyvox 600 mg p.o., Rocephin 1 g IV, and 1 dose of Bactrim DS p.o. He and his were uncomfortable with discharge secondary to the sudden onset of the last episode of cellulitis. We will admit him for observation with probable discharge after the third dose of Zyvox tomorrow morning. Labs: WBC 12.9 with neutrophils of 89.9%, H/14.4/45.6 with platelets of 196. 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 - Family History Father -: Hypertension, Diabetes - Social History Smoking Status: Unknown if ever smoked Alcohol use: Yes CD- Drugs: No Caffeine use: No Place of Residence: Home <Alyssa Marquez - Last Filed: 03/05/24 14:31> Date of Service: 03/05/24 <Armando Carrion - Last Filed: 03/05/24 19:00> Allergies No Known Allergies Allergy (Unverified 12/28/18 10:01) Home Medications: Dextroamphetamine/Amphetamine [Adderall 20 mg Tablet] 20 mg PO DAILY 05/19/22 Loratadine [Claritin*] 10 mg PO DAILY 05/19/22 Vit C/Ascorb Sod/Multivit-Min [Emergen-C 500 mg Chewable Tab] 500 mg PO DAILY 05/19/22 Zinc Gluconate [Zinc] 50 mg PO DAILY 05/19/22 Linezolid [Zyvox*] 600 mg PO BID 10 Days #20 tab 05/23/22 Review of Systems 10-point ROS is otherwise unremarkable Integumentary: As per HPI <Alyssa Marquez - Last Filed: 03/05/24 14:31> Physical Examination - Physical Exam General: Alert, In no apparent distress, Oriented x3, Obese HEENT: Atraumatic, Normocephalic Neck: Supple Respiratory: Normal air movement Cardiovascular: Normal pulses, Regular rate/rhythm, Normal S1 S2 Capillary refill: <2 Seconds Gastrointestinal: Soft and benign Musculoskeletal: No clubbing, No swelling Integumentary: Tenderness/swelling (left dorsal foot and lateral malleolus. Fungal appearing rash to left groin), Erythema, Warmth Neurological: Normal speech, Normal tone, Sensation intact, Normal affect Lymphatics: No axilla or inguinal lymphadenopathy External genitalia: Deferred Rectal: Deferred - Studies Laboratory Data (last 24 hrs) 03/05/24 03/05/24 07:30 07:30 WBC 12.90 H Hgb 14.4 Hct 45.6 Plt Count 196 Sodium 136 Potassium 4.1 BUN 13 Creatinine 0.99 Glucose 111 H Total Bilirubin 1.0 AST 14 L ALT 27 Alkaline Phosphatase 83 <Alyssa Marquez - Last Filed: 03/05/24 14:31> - Studies Laboratory Data (last 24 hrs) 03/05/24 03/05/24 03/05/24 07:30 07: 07:30 WBC 12.90 H Hgb 14.4 Hct 45.6 Plt Count 196 Sodium 136 Potassium 4.1 BUN 13 Creatinine 0.99 Glucose 111 H Uric Acid 5.2 Total Bilirubin 1.0 AST 14 L ALT 27 Alkaline Phosphatase 83 <Armando Carrion - Last Filed: 03/05/24 19:00> Assessment and Plan - Plan HTN monitor and trend HLD lipids in am DM Monitor and trend SSI Hgb A1c Cellulitis US in ED negative for DVT zyvox 600mg po BID rocephin 1 gm daily check uric acid level Obesity S/p gastric bypass comorbid conditions controlled with weight loss takes Adderall VTE prophylaxis lovenox - Advance Directives Does patient have a Living Will: No Does patient have a Durable POA for Healthcare: No - Code Status/Comfort Care Code Status: Full Code <Alyssa Marquez Stephen - Last Filed: 03/05/24 14:31> - Plan Pt seen and examined. I agree with the note by the MINISTER OF RELIGION. Pt is a 49yo male with past medical history of hypertension, hyperlipidemia, and obesity who presents with left foot cellulitis. This is the 3rd episode of cellulitis. It started yesterday and progressively worsened. His brought him to the ER for evaluation. On admission, lab studies show wbc 12.9, Hgb 14.4, K 4.1, Cr 0.99. Doppler ultrasound is negative for DVT. At bedside, pt is in NAD. A/p; Left foot cellulitis: There is not insect bite or skin break. Will continue iv zyvox and rocephin. Will f/u blood cx. Obesity: S/p gastric bypass. Pt takes adderall. Will continue home meds for other chronic medical problems. <Armando Carrion - Last Filed: 03/05/24 19:00>
[2024-03-05] MEDS: NYSTATIN PWDR 100000 UNIT/GM TOP SCH (13:00)
[2024-03-05 13:17] VITALS: BMI 40.1
[2024-03-05] MEDS: LACTOBACILLUS/ACIDOPHILUS TAB PO SCH (13:36)
[2024-03-05] MEDS: PNEUMOCOCCAL VACCINE 0.5 ML IMVAC ONE (14:00)
[2024-03-05] MEDS: LINEZOLID 600 MG TAB PO SCH (20:32)
[2024-03-05] MEDS ORDERED: LINEZOLID 600 MG TAB PO SCH (21:00)
[2024-03-06 06:33] LABS: Absolute Eosinophils 0.3 K/uL (0-0.5); Absolute Lymphocytes (CBC) 1.1 K/uL (0.7-4.9); Absolute Monocytes 0.7 K/uL (0.1-1.3); Absolute Neutrophil 4.6 K/uL (1.8-8.0); Basophils % 0.5 % (0-1.3); Eosinophils % 4.1 % (0-4.4); Hematocrit 43.2 % (39.6-49.0); Lymphocytes % 17.1 % (15.3-44.8); MCH 28.8 pg (27.0-35.0); MCHC 32.4 g/dL (32.0-36.0); MCV 88.9 fL (80-100); MPV 8.3 fL (7.6-11.3); Neutrophils % 68.3 % (41.7-73.7); Nucleated Red Blood Cells % 0.1 % (0-0); Platelets 201 thou/uL (152-406); RBC Red Blood Cell Count 4.86 M/uL (4.33-5.43); Red Cell Distribution Width 14.6 % (12.1-15.2)
[2024-03-06 06:54] LABS: Anion Gap 7.7 mEq/L (5.0-15.0); Potassium 4.7 mEq/L (3.5-5.1)
[2024-03-06] MEDS: CEFTRIAXONE 1,000 MG in NA CHLORIDE 0.9% 50 ML IVPB SCH (08:32)
--- NOTE | 2024-03-06 09:18 | P.DS ---
Admission Date: 03/05/24 Discharge Date: 03/06/24 Reason for Admission: Cellulitis Brief History of Present Illness: Mr. Leach is a 49-year-old with a past medical history of hypertension and hyperlipidemia secondary to obesity. He is status post gastric bypass. He takes Adderall but otherwise does not need medications for previous comorbidities secondary to weight loss per report. He has had a rapid onset of cellulitis in the past (three years ago) of his left lower extremity that was sensitive to Zyvox. He states yesterday after work he noted some left thigh pain, took his boots off, and noted his left foot was a bit swollen. By later in the evening, his left dorsal foot and left lateral malleolus were erythematous, warm to the touch, and more edematous. He states at that time it began throbbing. As his previous cellulitis was rapid in onset and seemingly only sensitive to Zyvox he presented to the emergency department this morning. Ultrasound studies in the emergency department were negative for DVT. He received Zyvox 600 mg p.o., Rocephin 1 g IV, and 1 dose of Bactrim DS p.o. He and his were uncomfortable with discharge secondary to the sudden onset of the last episode of cellulitis. We will admit him for observation with probable discharge after the third dose of Zyvox tomorrow morning. Labs: WBC 12.9 with neutrophils of 89.9%, H/14.4/45.6 with platelets of 196. Sodium 136, potassium 4.1, chloride 105, bicarb 26, BUN 13, creatinine 0.99 with a GFR of 93, glucose 111, LFTs normal Hospital Course: Mr. Leach states decreased pain in left lower extremity. Erythema has gotten smaller in diameter. His left foot remains swollen with erythema but is less angry than yesterday. The Zyvox is bioequivalent, we will discharge him home this afternoon with Zyvox for 10 additional days. He should stay home from work with his foot elevated until MondayMarch 11. <Alyssa Marquez - Last Filed: 03/06/24 12:00> Admission Date: 03/05/24 Discharge Date: 03/06/24 Hospital Course: Pt seen and examined. I agree with the note by the REHAB DIRECTOR OCCUPATIONAL THERAPIST. Ecllulitis is better. Continue zyvox for 10 more days. Ok to discharge pt. <Armando Carrion C - Last Filed: 03/06/24 12:35> Disposition: ROUTINE DISCHARGE Discharge Condition: GOOD Vital Signs/Physical Exam: Temp Pulse Resp BP Pulse Ox 97.7 F 68 17 120/60 97 03/06/24 08:00 03/06/24 08:00 03/06/24 08:00 03/06/24 08:00 03/06/24 08:00 General: Alert, In no apparent distress, Oriented x3 HEENT: Atraumatic, Normocephalic Neck: Supple Respiratory: Clear to auscultation bilaterally Cardiovascular: No edema, Normal pulses Capillary refill: <2 Seconds Musculoskeletal: No clubbing Integumentary: Other (left lower ankle/foot cellulitis with smaller diameter, decreased erythema) Neurological: Normal speech, Normal tone, Normal affect Lymphatics: No axilla or inguinal lymphadenopathy External genitalia: Deferred Rectal: Deferred Laboratory Data at Discharge: WBC 6.70 thou/uL (4.3-10.9) 03/06/24 06:14 Hgb 14.0 g/dL (13.6-17.9) 03/06/24 06:14 Hct 43.2 % (39.6-49.0) 03/06/24 06:14 Plt Count 201 thou/uL (152-406) 03/06/24 06:14 Sodium 137 mEq/L (136-145) 03/06/24 06:14 Potassium 4.7 mEq/L (3.5-5.1) D 03/06/24 06:14 BUN 13 mg/dL (7-18) 03/06/24 06:14 Creatinine 0.92 mg/dL (0.70-1.30) 03/06/24 06:14 Glucose 108 mg/dL (74-106) H 03/06/24 06:14 Uric Acid 5.2 mg/dL (3.5-7.2) 03/05/24 07:30 Total Bilirubin 1.0 mg/dL (0.2-1.0) 03/05/24 07:30 AST 14 U/L (15-37) L 03/05/24 07:30 ALT 27 U/L (16-61) 03/05/24 07:30 Alkaline Phosphatase 83 U/L (45-117) 03/05/24 07:30 Triglycerides 39 mg/dL (<150) 03/06/24 06:14 Cholesterol 125 mg/dL (<200) 03/06/24 06:14 HDL Cholesterol 73 mg/dL (40-60) H 03/06/24 06:14 Cholesterol/HDL Ratio 1.71 03/06/24 06:14 <Marquez,Alyssa Stephen - Last Filed: 03/06/24 12:00> Vital Signs/Physical Exam: Temp Pulse Resp BP Pulse Ox 97.2 F 85 16 119/54 L 99 03/06/24 11:50 03/06/24 11:50 03/06/24 11:50 03/06/24 11:50 03/06/24 11:50 Laboratory Data at Discharge: WBC 6.70 thou/uL (4.3-10.9) 03/06/24 06:14 Hgb 14.0 g/dL (13.6-17.9) 03/06/24 06:14 Hct 43.2 % (39.6-49.0) 03/06/24 06:14 Plt Count 201 thou/uL (152-406) 03/06/24 06:14 Sodium 137 mEq/L (136-145) 03/06/24 06:14 Potassium 4.7 mEq/L (3.5-5.1) D 03/06/24 06:14 BUN 13 mg/dL (7-18) 03/06/24 06:14 Creatinine 0.92 mg/dL (0.70-1.30) 03/06/24 06:14 Glucose 108 mg/dL (74-106) H 03/06/24 06:14 Uric Acid 5.2 mg/dL (3.5-7.2) 03/05/24 07:30 Total Bilirubin 1.0 mg/dL (0.2-1.0) 03/05/24 07:30 AST 14 U/L (15-37) L 03/05/24 07:30 ALT 27 U/L (16-61) 03/05/24 07:30 Alkaline Phosphatase 83 U/L (45-117) 03/05/24 07:30 Triglycerides 39 mg/dL (<150) 03/06/24 06:14 Cholesterol 125 mg/dL (<200) 03/06/24 06:14 HDL Cholesterol 73 mg/dL (40-60) H 03/06/24 06:14 Cholesterol/HDL Ratio 1.71 03/06/24 06:14 <Armando Carrion - Last Filed: 03/06/24 12:35> Diet: ADA Activity: off work to keep left lower ext elevated <Alyssa Marquezlen - Last Filed: 03/06/24 12:00> <Armando Carrion - Last Filed: 03/06/24 12:35> Home Medications: Lisdexamfetamine Dimesylate [Vyvanse] 60 mg PO DAILY 03/05/24 Linezolid [Zyvox*] 600 mg PO BID #20 tab 03/06/24 Nystatin Powder [Mycostatin (Powder)*] 1 appl TOP BID #1 bottle 03/06/24 New Medications: Nystatin Powder [Mycostatin (Powder)*] 1 appl TOP BID #1 bottle Linezolid [Zyvox*] 600 mg PO BID #20 tab Physician Discharge Instructions: Mr. Leach states decreased pain in left lower extremity. Erythema has gotten smaller in diameter. His left foot remains swollen with erythema but is less angry than yesterday. The Zyvox is bioequivalent, we will discharge him home this afternoon with Zyvox for 10 additional days. He should stay home from work with his foot elevated until MondayMarch 11. Followup: Les Turner MD [Primary Care Provider] - 1-2 Weeks Sean Pang MD [ACTIVE - CAN ADMIT] -
[2024-03-06 09:32] VITALS: O2SAT 97
[2024-03-06 11:51] VITALS: BP 119/54; TEMP 97.2
== END 2024-03-06 13:32 | disposition home or self-care (01) ==
LOC: ER 06:36 → ERHOLD 10:21 → INTOOBSV 10:21 → 4TH 15:55
PROVIDERS: ADMIT Hospitalist; ATTEND Hospitalist
DX: L03.116 Cellulitis of left lower limb (principal); I10 Essential (primary) hypertension; E78.5 Hyperlipidemia, unspecified; E11.9 Type 2 diabetes mellitus without complications; E66.9 Obesity, unspecified; Z68.41 Body mass index [BMI] 40.0-44.9, adult
CPT/HCPCS: 85025; 36415; 84550; 80053; 84145; 93971; J0696; 80048; 80061; 83036; 87040; 96374; 99285; G0378